=== PATIENT | female | born 1960 | race Asian ===

== ENCOUNTER 2018-10-21 13:02 | Emergency (ER) | payer OTHER ==
--- NOTE | 2018-10-21 13:23 | PDOC ---
History of Present Illness - General Chief Complaint: Back Pain Stated Complaint: CHRONIC BACK PAIN Time Seen by Provider: 10/21/18 13:21 - History of Present Illness Initial Comments: 10/21/18 13:40 58-year-old female complaining of right sided back pain radiating to the light right leg for the last 6 days after pushing a heavy object. Patient was seen by her primary care physician who ordered her Flexeril and Mobic. Patient reports dry mouth after taking Flexeril with no improvement in pain. Today patient had lumbar spine x-ray, patient came to the emergency room for evaluation. Past medical history: Asthma and chronic back pain Past History - Past Medical History Allergies/Adverse Reactions: Allergies Allergy/AdvReac Type Severity Reaction Status Date / Time azithromycin [From Zithromax] Allergy Rash Verified 10/21/18 13:23 Home Medications: Ambulatory Orders Albuterol Sulfate [Proair Hfa -] 1 - 2 inh PO TID 10/17/15 Mometasone/Formoterol [Dulera 100 Mcg/5 Mcg Inhaler] 2 inh IH BID 10/17/15 Amlodipine Besylate [Norvasc -] 5 mg PO DAILY 10/21/18 Atorvastatin Ca [Lipitor] 10 mg PO HS 10/21/18 Cyclobenzaprine HCl [Flexeril 10 mg] 10 mg PO BID PRN 10/21/18 Diazepam [Valium] 5 mg PO BID PRN #7 tablet MDD 2 10/21/18 Ibuprofen 600 mg PO QID PRN #20 tablet 10/21/18 Meloxicam [Mobic] 15 mg PO DAILY 10/21/18 predniSONE [Deltasone -] 5 mg PO DAILY 10/21/18 Asthma: Yes HTN: Yes (NO MEDS) - Reproductive History (#): 6 Para: 6 - Suicide/Smoking/Psychosocial Hx Smoking History: Never smoked Hx Alcohol Use: No Drug/Substance Use Hx: No Substance Use Type: None Review of Systems - Review of Systems Able to Perform ROS?: Yes Is the patient limited Telugu proficient: No Constitutional: No: Symptoms Reported, See HPI, Chills, Diaphoresis, Fever, Loss of Appetite, Malaise, Night Sweats, Weakness, Weight Stable, Unintentional Wgt. Loss, Unexplained wgt Loss, Other Progress Note - Progress Note Progress Note: A: sciatic nerve pain P: xray done prior to ED visit today reviewed.no acute findings pending read. will d/c flexeril and Mobic. Valium and ibuprofen patient has an Ortho appointment this week *DC/Admit/Observation/Transfer Diagnosis at time of Disposition: Sciatic nerve pain Qualifiers: Laterality: right Qualified Code(s): M54.31 - Sciatica, right side - Discharge Dispostion Disposition: HOME - Prescriptions Prescriptions: Diazepam [Valium] 5 mg PO BID PRN #7 tablet MDD 2 PRN Reason: Muscle Spasms Ibuprofen 600 mg PO QID PRN #20 tablet PRN Reason: Back Pain - Referrals - Patient Instructions Printed Discharge Instructions: DI for Back Pain With Sciatica Additional Instructions: take Ibuprofen every 6 hours as needed for pain take Valium as prescribed. it can make you sleepy do not drive after taking this medication follow up your doctor as soon as possible. Additional Instructions: * Please call your personal physician to report your Emergency Department visit and to report your progress, if any. * If there is no improvement in symptoms in 2 days call your physician. * Return to the Emergency Department for any worsening symptoms. - Post Discharge Activity Forms/Work/School Notes: Back to Work
[2018-10-21 13:24] VITALS: BP 150/90; PULSE 90; TEMP 97.8; BMI 24.9
[2018-10-21] MEDS ORDERED: diazePAM 5 MG TABLET PO ONE (13:37)
[2018-10-21] MEDS ORDERED: KETOROLAC TROMETHAMINE 30 MG/1 ML VIAL IM ONE (13:37)
[2018-10-21] MEDS ORDERED: KETOROLAC TROMETHAMINE 30 MG/1 ML VIAL ONE (13:44)
[2018-10-21] MEDS ORDERED: diazePAM 5 MG TABLET ONE (13:44)
== END 2018-10-21 14:05 | disposition home or self-care (01) ==
LOC: JERFT 13:02
PROC: 3E0233Z Introduction of Anti-inflammatory into Muscle, Percutaneous Approach (ICD-10-PCS; principal; 2018-10-21)
DX: M54.31 Sciatica, right side (principal); I10 Essential (primary) hypertension; J45.909 Unspecified asthma, uncomplicated
CPT/HCPCS: 99281-25

== ENCOUNTER 2019-06-09 22:04 | Inpatient (IN) | payer OTHER ==
[2019-06-09 22:17] VITALS: BMI 24.0
[2019-06-09] MEDS ORDERED: morphine CARPU-JECT 2 MG/1 ML DISP.SYRIN IVPUSH ONE (23:40)
[2019-06-09] MEDS ORDERED: SODIUM CHLORIDE 0.9% 500 ML INFUS.BAG IV ONE (23:40)
[2019-06-09] MEDS ORDERED: MORPHINE SULFATE 2 MG/ML VIAL ONE (23:55)
[2019-06-10] MEDS ORDERED: ONDANSETRON 4 MG/2 ML VIAL ONE (00:09)
--- NOTE | 2019-06-10 00:09 | PDOC ---
History of Present Illness - General Chief Complaint: Pain Stated Complaint: BACK PAIN/HBP Time Seen by Provider: 06/09/19 23:18 History Source: Patient, Family Exam Limitations: Language Barrier (moderate nauruan limitation; luxembourgish, family bedside ) - History of Present Illness Initial Comments: 06/10/19 06:22 HPI: 58F PMH HTN Asthma Sciatica presenting w/ 1 day acute worsening of back pain that pt has had for a month. States pain is constant, pressure like, with radiating to the substernum and epigastrum (burning). Endorsing vomiting since arrival to ED but no nausea. Denies f/c, numbness/tingling, sob. Pt states this is not her sciatica pain. PMH as above Meds per chart Allergies reviewed Past History - Past Medical History Allergies/Adverse Reactions: Allergies Allergy/AdvReac Type Severity Reaction Status Date / Time azithromycin [From Zithromax] Allergy Rash Verified 10/21/18 13:23 Home Medications: Ambulatory Orders Albuterol Sulfate [Proair Hfa -] 1 - 2 inh PO TID 10/17/15 Mometasone/Formoterol [Dulera 100 Mcg/5 Mcg Inhaler] 2 inh IH BID 10/17/15 Amlodipine Besylate [Norvasc -] 5 mg PO DAILY 10/21/18 Atorvastatin Ca [Lipitor] 10 mg PO HS 10/21/18 Cyclobenzaprine HCl [Flexeril 10 mg] 10 mg PO BID PRN 10/21/18 Diazepam [Valium] 5 mg PO BID PRN #7 tablet MDD 2 10/21/18 Ibuprofen 600 mg PO QID PRN #20 tablet 10/21/18 Meloxicam [Mobic] 15 mg PO DAILY 10/21/18 predniSONE [Deltasone -] 5 mg PO DAILY 10/21/18 Asthma: Yes COPD: No HTN: Yes (NO MEDS) - Reproductive History (#): 6 Para: 6 - Psycho Social/Smoking Cessation Hx Smoking History: Never smoked Hx Alcohol Use: No Drug/Substance Use Hx: No Substance Use Type: None Review of Systems - Review of Systems Able to Perform ROS?: Yes Comments:: 06/10/19 06:22 ROS: CONSTITUTIONAL: Denies F / C RESP: Denies SOB CARD: Endorses substerum chest pain (radiates from back) GI: Endorses epigastric pain (radiates from back) Endorses vomiting. MSK: Endorses back pain NEURO: Endorses generalized weakness. Denies numbness, tingling Is the patient limited Swedish proficient: Yes *Physical Exam - Vital Signs Last Vital Signs Temp Pulse Resp BP Pulse Ox 57 L 18 129/65 97 06/09/19 22:14 06/09/19 22:14 06/09/19 22:14 06/09/19 22:14 - Physical Exam Comments: 06/10/19 06:22 PE: GEN: AAOx3, visibly in pain HEENT: NC/AT. No facial asymmetry. Normal voice. Supple neck w/ FROM. CV: S1/S2, RRR, no m/r/g LUNG: CTAB, no wheezes, crackles, rales, rhonchi. GI: +TTP of the epigastrum and RUQ. +BS. Soft, nd. No masses BACK: Diffusely tender in thoracic region. No step offs. EXTREMITIES: No obvious deformities of all extremities. SKIN: warm, dry, normal turgor NEURO: Moving all extremities well. ED Treatment Course - LABORATORY CBC & Chemistry Diagram: 06/10/19 00:01 06/10/19 00:01 - RADIOLOGY Radiology Studies Ordered: Category Date Time Status CHEST CTA [CT] Stat CT Scan 06/09/19 23:42 Ordered CHEST X-RAY PORTABLE* [RAD] Stat Radiology 06/09/19 23:41 Ordered - Medications Given in the ED: ED Medications Discontinued Medications Generic Name Dose Route Start Last Admin Trade Name Freq PRN Reason Stop Dose Admin Morphine Sulfate 2 mg 06/09/19 23:40 06/10/19 00:03 Morphine Injection - IVPUSH 06/09/19 23:41 2 mg ONCE ONE Administration Sodium Chloride 1,000 ml 06/09/19 23:40 06/10/19 00:04 Normal Saline - IV 06/09/19 23:41 1,000 ml ONCE ONE Administration Medical Decision Making - Medical Decision Making 06/10/19 00:12 MDM: 58F c/o acute back pain, epigastric and substernal pain. TTP of the RUQ and mid- epigastrium. DDx - likely gallbladder pathology, considering ACS - CBC, CMP, Lipase, Cardiac, BNP - EKG, CXR - Pain ctrl - Fluids - RUQ US - consider CTA 06/10/19 01:40 labs reviewed likely biliary/RUQ pathology f/u US results 06/10/19 05:24 UA neg. US showing borderline CBD obtained CT A/P; f/u report patient was reassessed at 03:00, was pain free and nontender on exam obtained further hx - patient has had 4 episodes of similar pain but usually self resolving and not as severe 06/10/19 05:34 UTOX ordered by mistake; +opiates, we treated pt w/ morphine before urine sample given. Son (Isaak) can be reached at [phone] 06/10/19 06:[address] Young Abbasi television production assistant doctor - ADMITTED to med/surg under Dr. Abbasi GI and Surgery c/s placed Discharge - Discharge Information Problems reviewed: Yes Clinical Impression/Diagnosis: Symptomatic cholelithiasis - Admission Yes - Follow up/Referral Referrals: Edinson Das MD [Primary Care Provider] - Young Abbasi MD [Staff Physician] - - Patient Discharge Instructions - Post Discharge Activity
[2019-06-10] MEDS ORDERED: FAMOTIDINE 20 MG/50 ML IVPB 20 MG/50 ML MG IVPB ONE ×2 (00:15→01:17)
[2019-06-10] MEDS ORDERED: ONDANSETRON 4 MG/2 ML VIAL IVPUSH ONE (00:15)
[2019-06-10] MEDS ORDERED: ACETAMINOPHEN 1000 MG/100 ML VIAL (NON FORMULARY) IVPB ONE (00:17)
[2019-06-10] MEDS ORDERED: ACETAMINOPHEN INJECTION 100 ML IVPB ONE (00:19)
[2019-06-10 00:33] LABS: BASO % 0.4 % (0-2.0); EOS % 3.3 % (0-4.5); HEMATOCRIT 38.4 % (32.4-45.2); HEMOGLOBIN 12.7 GM/dL (10.7-15.3); LYMPH % 14.5 % (8-40); MCH 30.3 pg (25.7-33.7); MCHC 33.2 g/dl (32.0-36.0); MEAN CELL VOLUME 91.4 fl (80-96); MEAN PLT VOLUME 7.6 fl (7.5-11.1); NEUT % 75.8 % (42.8-82.8); PLATELET COUNT 268 K/MM3 (134-434); RDW 13.5 % (11.6-15.6); WHITE BLOOD COUNT 10.8 K/mm3 (4.0-10.0)
[2019-06-10 00:46] LABS: INR 1.05 (0.83-1.09); PROTHROMBIN TIME (PATIENT) 12.4 SEC (9.7-13.0)
--- NOTE | 2019-06-10 01:06 | PDOC ---
Documentation entered by Bharti Zaman SCRIBE, acting as scribe for Danae Montejo DO. Danae Montejo DO: This documentation has been prepared by the Austyn mojica Brenda, SCRIBE, under my direction and personally reviewed by me in its entirety. I confirm that the documentation accurately reflects all work, treatment, procedures, and medical decision making performed by me. Attending Attestation - Resident Resident Name: David Ruff - ED Attending Attestation I have performed the following: I have examined & evaluated the patient, The case was reviewed & discussed with the resident, I agree w/resident's findings & plan, Exceptions are as noted - HPI HPI: 06/10/19 00:35 The patient is a 58 year old female, with a significant PMH of sciatic pain, asthma and HTN who presents to the emergency department with 1 month of progressively worsening epigastric pain, which radiates from her back. As per patients son on the bedside, the patient has been experiencing this epigastric/ back pain for 1 month about 2-3 times a week, but was prompted to come to the ED this morning due to worsening symptoms, which are accompanied by nausea and vomiting. The patient also endorses a burning sensation in the chest. The patient denies shortness of breath, headache and dizziness. Denies fever, chills, nausea, vomiting, diarrhea and constipation. Denies dysuria, frequency, urgency and hematuria. Allergies: NKA Past surgical history: None reported Social history: No tobacco use, alcohol use or illicit drug use. PCP: [facility] Neurologist: Lurdes - Physicial Exam PE: 06/10/19 00:35 GENERAL: Awake, alert, and fully oriented, in no acute distress HEAD: No signs of trauma EYES: PERRLA, EOMI, sclera anicteric, conjunctiva clear ENT: Auricles normal inspection, hearing grossly normal, nares patent, oropharynx clear without exudates. Moist mucosa NECK: Normal ROM, supple, no lymphadenopathy, JVD, or masses LUNGS: Breath sounds equal, clear to auscultation bilaterally. No wheezes, and no crackles HEART: Regular rate and rhythm, normal S1 and S2, no murmurs, rubs or gallops ABDOMEN:(+) Epigastric tenderness to palpation. (+) Right upper quadrant tenderness to palpation. (+) Less severe lower abdominal tenderness. (+) Positive robinson's. Soft, normoactive bowel sounds. No guarding, no rebound. No masses BACK: (+) Diffuse tenderness in back. (+) Bilateral CVA tenderness. No midline or CT L spine tenderness. EXTREMITIES: Normal range of motion, no edema. No clubbing or cyanosis. No cords, erythema, or tenderness NEUROLOGICAL: Cranial nerves II through XII grossly intact. Normal speech, normal gait SKIN: Warm, Dry, normal turgor, no rashes or lesions noted. - Medical Decision Making 06/10/19 00:21 I, Dr. Danae Montejo, DO, attest that this document has been prepared under my direction and personally reviewed by me in its entirety. I further attest, that it accurately reflects all work, treatment, procedures and medical decision -making performed by me. a/p: 58yo female with hx of sciatica who follows with Dr. Chatman and asthma with abd pain -hx of episodes x 20 days - but worse tonight with n/v -nbnb vomiting -burning sensation in abd and chest -back pain that radiates to the front -concern for gallstone pancreatitis vs pud vs gastritis -will send labs, ekg, cxr -will send for ct after bedside ultrasound -will medicate and reassess 06/10/19 01:05 bedside ultrasound shows gallstones, +murphys, +gbw thickening and dilated cbd sent for formal imaging will hodl off on ct imaging at this time pain to RUQ - suspect acute shona 06/10/19 01:06 pt states she feels better and wants to eat 06/10/19 01:21 elevated lft no elevated lipase 06/10/19 01:28 pt with stones on ultrasound also with poss early early pna on cxr will start abx 06/10/19 01:51 pt pending official ultrasound read signed out to the oncoming ED physician Heart Score/ECG Review - ECG Intrepretation Comment:: 06/10/19 00:19 sinus at 61, nl axis, nl interval, no acute st/t wave findings
[2019-06-10 01:17] LABS: ALBUMIN 3.7 g/dl (3.4-5.0); ALK PHOS 104 U/L (45-117); ANION GAP 11 MMOL/L (8-16); BILIRUBIN,TOTAL 0.9 mg/dL (0.2-1); BLOOD UREA NITROGEN 12.9 mg/dL (7-18); CALCIUM 9.1 mg/dL (8.5-10.1); CHLORIDE 103 mmol/L (98-107); CO2 26 mmol/L (21-32); CREATININE 0.7 mg/dL (0.55-1.3); GLUCOSE,RANDOM 158 mg/dL (74-106); LIPASE 204 U/L (73-393); N-TERMINAL BNP 27.8 pg/ml (5-125); POTASSIUM 3.9 mmol/L (3.5-5.1); SGOT/AST 89 U/L (15-37); SGPT/ALT 183 U/L (13-61); SODIUM 140 mmol/L (136-145); TOT PROT 7.6 g/dl (6.4-8.2)
[2019-06-10 05:10] LABS: PH,URINE 7.5 (5.0-8.0); URINE APPEARANCE CLEAR; URINE BILIRUBIN NEGATIVE (NEGATIVE); URINE COLOR YELLOW; URINE GLUCOSE (UA) NEGATIVE (NEGATIVE); URINE KETONE NEGATIVE (NEGATIVE); URINE LEUK ESTERASE NEGATIVE (NEGATIVE); URINE NITRITE NEGATIVE (NEGATIVE); URINE PROTEIN NEGATIVE (NEGATIVE); URINE UROBILINOGEN 0.2 mg/dL (0.2-1.0)
[2019-06-10 05:29] LABS: COCAINE, UR NEGATIVE ng/ml (CUTOFF=300); METHADONE, UR NEGATIVE ng/ml (CUTOFF=300); PHENCYCLIDINE,URINE NEGATIVE ng/ml (CUTOFF=25); URINE AMPHETAMINES NEGATIVE ng/ml (CUTOFF=500); URINE BARBITURATES NEGATIVE ng/ml (CUTOFF=200); URINE BENZODIAZEPINES NEGATIVE ng/ml (CUTOFF=200)
[2019-06-10 05:31] LABS: OPIATES, URI POSITIVE ng/ml (CUTOFF=300)
--- NOTE | 2019-06-10 12:46 | EKG ---
Test Reason : Blood Pressure : / mmHG Vent. Rate : 061 BPM Atrial Rate : 061 BPM P-R Int : 154 ms QRS Dur : 082 ms QT Int : 440 ms P-R-T Axes : 068 058 059 degrees QTc Int : 442 ms NORMAL SINUS RHYTHM NONSPECIFIC T WAVE ABNORMALITY ABNORMAL ECG WHEN COMPARED WITH ECG OF 17-OCT-2015 13:48, VENT. RATE HAS DECREASED BY 37 BPM Confirmed by CHUNG PATEL MD ([id number]) on 06/10/2019 12:45:49 PM Referred By: Confirmed By:CHUNG PATEL MD
--- NOTE | 2019-06-10 13:25 | CONSULT ---
Consult Consult Specialty:: Surgery Referred by:: Dr. Abbasi Reason for Consultation:: Abdominal pain , cholelithiasis, cholecystitis. - History of Present Illness Chief Complaint: C/O having upper abdominal pain since this morning, associated with nausea. - History Source History Provided By: Patient Limitations to Obtaining History: No Limitations - Past Medical History Cardio/Vascular: Yes: HTN Pulmonary: Yes: Asthma - Past Surgical History Past Surgical History: Yes: - Alcohol/Substance Use Hx Alcohol Use: No - Smoking History Smoking history: Never smoked Home Medications - Allergies Allergies/Adverse Reactions: Allergies Allergy/AdvReac Type Severity Reaction Status Date / Time azithromycin [From Zithromax] Allergy Rash Verified 10/21/18 13:23 - Home Medications Home Medications: Ambulatory Orders Albuterol Sulfate [Proair Hfa -] 1 - 2 inh PO TID 10/17/15 Mometasone/Formoterol [Dulera 100 Mcg/5 Mcg Inhaler] 2 inh IH BID 10/17/15 Amlodipine Besylate [Norvasc -] 5 mg PO DAILY 10/21/18 Atorvastatin Ca [Lipitor] 10 mg PO HS 10/21/18 Cyclobenzaprine HCl [Flexeril 10 mg] 10 mg PO BID PRN 10/21/18 Diazepam [Valium] 5 mg PO BID PRN #7 tablet MDD 2 10/21/18 Ibuprofen 600 mg PO QID PRN #20 tablet 10/21/18 Meloxicam [Mobic] 15 mg PO DAILY 10/21/18 predniSONE [Deltasone -] 5 mg PO DAILY 10/21/18 Physical Exam Vital Signs: Vital Signs Temperature 98.2 F 06/10/19 06:50 Pulse Rate 60 06/10/19 06:50 Respiratory Rate 16 06/10/19 06:50 Blood Pressure 119/69 06/10/19 06:50 O2 Sat by Pulse Oximetry (%) 97 06/10/19 06:50 Gastrointestinal: Yes: Abdomen, Obese Labs: CBC, BMP 06/10/19 00:01 06/10/19 00:01 Imaging - Results Cat Scan: Image Reviewed (CT scan large gallbladder with thickened wall. Cholelithiasis) Ultrasound: Report Reviewed, Image Reviewed Problem List - Problems (1) Symptomatic cholelithiasis Code(s): K80.20 - CALCULUS OF GALLBLADDER W/O CHOLECYSTITIS W/O OBSTRUCTION (2) Abdominal pain Code(s): R10.9 - UNSPECIFIED ABDOMINAL PAIN Qualifiers: Abdominal location: epigastric Qualified Code(s): R10.13 - Epigastric pain (3) Asthma Code(s): J45.909 - UNSPECIFIED ASTHMA, UNCOMPLICATED (4) HTN (hypertension) Code(s): I10 - ESSENTIAL (PRIMARY) HYPERTENSION Assessment/Plan Impression : Calculus of gallbladder with acute on chronic cholecystitis. Patient and her were explained of her condition , and treatment with cholecystectomy. The procedure of laparoscopic and open cholecystectomy was explained , with risks , benefits and complications, including , bleeding , infection , bile leak, and ductal injury. Consent obtained. Discussed with Dr. Abbasi. Antibiotics.
[2019-06-10] MEDS ORDERED: BUPIVACAINE HCL/PF 0.5% (5 MG/ML) 30 ML VIAL IJ ONE ×3 (13:35→15:36)
[2019-06-10] MEDS ORDERED: ROCURONIUM BROMIDE 50 MG/5 ML SYRINGE ONE (13:36)
[2019-06-10] MEDS ORDERED: MIDAZOLAM HCL 2 MG/2 ML SINGLE DOSE VIAL ONE (13:36)
[2019-06-10] MEDS ORDERED: PROPOFOL 20 ML ONE (13:36)
[2019-06-10] MEDS ORDERED: fentaNYL CITRATE 250 MCG/5 ML VIAL ONE (13:36)
[2019-06-10] MEDS ORDERED: LIDOCAINE HCL/PF 2% SDV 5ML VIAL ONE (13:36)
[2019-06-10] MEDS ORDERED: DEXAMETHASONE SOD PHOSPHATE 4 MG/1 ML VIAL ONE (13:38)
[2019-06-10] MEDS ORDERED: MORPHINE SULFATE 2 MG/ML VIAL IVPUSH PRN ×2 (13:59→16:03)
[2019-06-10] MEDS ORDERED: LACTATED RINGERS SOLUTION 1,000 ML IV SCH (14:00)
--- NOTE | 2019-06-10 14:09 | PN ---
Progress Note, Physician - Current Medication List Current Medications: Active Medications Fentanyl (Sublimaze Injection -) 25 mcg IVPUSH [id number] PRN PRN Reason: PAIN-PACU ORDER X 4 DOSES ONLY Lactated Ringer's (Lactated Ringers Solution) 1,000 mls @ 125 mls/hr IV ASDIR SHADI Morphine Sulfate (Morphine Sulfate) 2 mg IVPUSH [id number] PRN PRN Reason: PAIN-PACU ORDER X 4 DOSES ONLY - Objective Vital Signs: Vital Signs Temperature 98.6 F 06/10/19 14:01 Pulse Rate 73 06/10/19 14:01 Respiratory Rate 18 06/10/19 14:01 Blood Pressure 144/93 06/10/19 14:01 O2 Sat by Pulse Oximetry (%) 97 06/10/19 06:50 Labs: CBC, BMP 06/10/19 00:01 06/10/19 00:01 INR, PTT INR 1.05 (0.83-1.09) 06/10/19 00:01 Problem List - Problems (1) Symptomatic cholelithiasis Code(s): K80.20 - CALCULUS OF GALLBLADDER W/O CHOLECYSTITIS W/O OBSTRUCTION (2) Abdominal pain Code(s): R10.9 - UNSPECIFIED ABDOMINAL PAIN Qualifiers: Abdominal location: epigastric Qualified Code(s): R10.13 - Epigastric pain (3) Asthma Code(s): J45.909 - UNSPECIFIED ASTHMA, UNCOMPLICATED (4) HTN (hypertension) Code(s): I10 - ESSENTIAL (PRIMARY) HYPERTENSION Assessment/Plan CT scan was reviewed with radiologist, shows a thickened gallbladder. rest of the abdomen is normal.
--- NOTE | 2019-06-10 14:21 | CON.GI ---
Consult Consult Specialty:: Gastroenterology Referred by:: Dr Abbasi Reason for Consultation:: Consult was not done as the patient was taken to the OR before I could do it Home Medications - Allergies Allergies/Adverse Reactions: Allergies Allergy/AdvReac Type Severity Reaction Status Date / Time azithromycin [From Zithromax] Allergy Rash Verified 10/21/18 13:23 - Home Medications Home Medications: Ambulatory Orders Albuterol Sulfate [Proair Hfa -] 1 - 2 inh PO TID 10/17/15 Mometasone/Formoterol [Dulera 100 Mcg/5 Mcg Inhaler] 2 inh IH BID 10/17/15 Amlodipine Besylate [Norvasc -] 5 mg PO DAILY 10/21/18 Atorvastatin Ca [Lipitor] 10 mg PO HS 10/21/18 Cyclobenzaprine HCl [Flexeril 10 mg] 10 mg PO BID PRN 10/21/18 Diazepam [Valium] 5 mg PO BID PRN #7 tablet MDD 2 10/21/18 Ibuprofen 600 mg PO QID PRN #20 tablet 10/21/18 predniSONE [Deltasone -] 5 mg PO DAILY 10/21/18 Gabapentin 100 mg PO TID 06/11/19 Physical Exam-GI Vital Signs: Vital Signs Temperature 98.6 F 06/10/19 14:01 Pulse Rate 73 06/10/19 14:01 Respiratory Rate 18 06/10/19 14:01 Blood Pressure 144/93 06/10/19 14:01 O2 Sat by Pulse Oximetry (%) 97 06/10/19 06:50 Labs: CBC, BMP 06/10/19 00:01 06/10/19 00:01 INR, PTT INR 1.05 (0.83-1.09) 06/10/19 00:01
[2019-06-10] MEDS ORDERED: ceFAZolin SODIUM 1 GM VIAL IVPB ONE (14:38)
[2019-06-10] MEDS ORDERED: ceFAZolin SODIUM 1 GM VIAL ONE (14:41)
[2019-06-10] MEDS ORDERED: EPHEDRINE SULFATE/0.9% NACL/PF 50 MG/10 ML SYRINGE NR ONE (14:53)
[2019-06-10] MEDS ORDERED: NEOSTIGMINE METHYLSULFATE 0.5 MG/ML - 10 ML MDV ONE (15:29)
[2019-06-10] MEDS ORDERED: GLYCOPYRROLATE 0.2 MG/1 ML VIAL ONE (15:29)
--- NOTE | 2019-06-10 15:36 | PN ---
Progress Note (short form) - Note Progress Note: GI NOte : The patient went to the operating room before I could see her.
--- NOTE | 2019-06-10 15:53 | OP ---
Operative Note - Note: Operative Date: 06/10/19 Pre-Operative Diagnosis: Cholelithiasis, with cholecystitis. Operation: Laparoscopic cholecystectomy, wedge biopsy of liver from the edge of the right lobe. Findings: Cholecystitis , diffusely nodular liver. Post-Operative Diagnosis: Other (Cholecystitis , diffusely nodular liver.) Surgeon: Amadou Hunter Fastener Technologist: Cain Donaldson Anesthesia: General Specimens Removed: 1) Gallbladder,. 2) liver biopsy , wedge. Estimated Blood Loss (mls): 5 Operative Report Dictated: Yes
--- NOTE | 2019-06-10 15:57 | SURG ---
Surgery Implementation Specialist Payroll Note Implementation Specialist Payroll: Cain Donaldson PA-C (Suzy) Date of Service: 06/10/19 Diagnosis: Cholelithiasis, with cholecystitis. Procedure: Operation: Laparoscopic cholecystectomy, wedge biopsy of liver from the edge of the right lobe. I was present for the entirety of the operative procedure. For further detail, please refer to operative report. Visit type - Case Type Case Type: Scheduled - Emergency Emergency Visit: No - New patient This patient is new to me today: Yes Date on this admission: 06/10/19 - Critical Care Critical Care patient: No
[2019-06-10] MEDS ORDERED: ONDANSETRON 4 MG/2 ML VIAL IVPUSH PRN (16:12)
[2019-06-10] MEDS: LACTATED RINGERS SOLUTION 1,000 ML IV SCH (16:50)
[2019-06-10] MEDS ORDERED: hydrALAZINE HCL 20 MG/ML VIAL IVPUSH PRN (17:06)
[2019-06-10] MEDS ORDERED: hydrALAZINE HCL 20 MG/ML VIAL ONE (17:06)
[2019-06-10] MEDS: ACETAMINOPHEN WITH CODEINE 300MG/30MG TABLET PO PRN (17:52)
--- NOTE | 2019-06-10 20:28 | HP ---
DATE OF ADMISSION: 06/10/2019 This is a 58-year-old female known to have COPD, hypertension, hyperlipidemia; came to my office 2 days ago with complaints of abdominal pain. She was sent to the hospital for an ultrasound. She landed up in the ER yesterday, found out to have acute cholecystitis. Surgical consult was done this morning by Dr. Hunter. He took her to the operating room, and cholecystectomy was done. She had multiple gallstones. After the operation, she tolerated the procedure very well. Now sleepy. PHYSICAL EXAMINATION: Vital Signs: Her blood pressure is 130/80, pulse 72, respirations 20, temperature 98. HEENT: Unremarkable. Neck: Supple. No JVD. Lungs: Clear. Heart: S1, S2 normal. No S3, S4. Abdomen: Mildly distended. Legs: No edema. Urine output okay. LABORATORY REPORTS: WBC 10.8, hemoglobin 12.7. Chemistry: Sodium 140, potassium 3.9, chloride 103, BUN 13, creatinine 0.7, blood sugar 158. AST/ALT slightly elevated, 89 and 183. Lipase 204. BNP normal, 27.8. IMPRESSION: 1. Acute cholecystitis, status post cholecystectomy. 2. Bronchial asthma. 3. Hyperlipidemia. Will evaluate again in the morning. If stable, can be discharged home. Jarrett [id number]
[2019-06-10] MEDS ORDERED: HYDROmorphone HCL 2 MG TABLET PO ONE (21:15)
[2019-06-11] MEDS: LACTATED RINGERS SOLUTION 1,000 ML IV SCH (01:12)
[2019-06-11] MEDS: ACETAMINOPHEN WITH CODEINE 300MG/30MG TABLET PO PRN ×2 (01:12→11:48)
--- NOTE | 2019-06-11 08:28 | PN ---
Progress Note (short form) - Note Progress Note: Anesthesia Post op Pt seen and examined S:Alert and awake comfortable O: Vital Signs Temperature 98.3 F 06/11/19 06:41 Pulse Rate 81 06/11/19 06:41 Respiratory Rate 18 06/11/19 06:41 Blood Pressure 140/70 06/11/19 06:41 O2 Sat by Pulse Oximetry (%) 99 06/10/19 21:00 CBC, BMP 06/10/19 00:01 06/10/19 00:01 A/P: Current Active Problems Abdominal pain (Acute) Symptomatic cholelithiasis (Acute) s/p Lap Cholecystectomy Doing well post op Continue current care Callum Heath M.D.
[2019-06-11 13:26] VITALS: BP 148/81; PULSE 89; TEMP 98.2
--- NOTE | 2019-06-11 13:50 | DS ---
Physical Examination Vital Signs: Vital Signs Temperature 98.2 F 06/11/19 13:24 Pulse Rate 89 06/11/19 13:24 Respiratory Rate 20 06/11/19 13:24 Blood Pressure 148/81 06/11/19 13:24 O2 Sat by Pulse Oximetry (%) 99 06/11/19 09:00 Young F not in distress HEENT: mm moist anemia, PERRLA EOMI NECK; No JVd No Bruit CHEST:CTa B/L ABD: S/P Cholycystectomy, No distention non tender Bs + EXT: edema feet + , no calf tenderness LEAD JAVASCRIPT ENGINEER: AOX3 non focal Labs: CBC, BMP 06/10/19 00:01 06/10/19 00:01 Discharge Summary Problems reviewed: Yes Reason For Visit: SYMPTOMATIC CHOLELITHIASIS Current Active Problems Abdominal pain (Acute) Symptomatic cholelithiasis (Acute) Procedures: Principal: laproscopic cholycystectomy Hospital Course: 58 yrs old F admitted with Rt UQ pain w/u shows acute cholycystitis with gall stone underwent , Laproscopic cholycystectomy on 06/10/2019 today comfortable tolerating PO claered by surgery to In home. Plan of Treatment: Advance Po as tolerates F/U PCP and Operating surgeon Condition: Improved - Instructions Diet, Activity, Other Instructions: Advance PO as tolerates Referrals: Young Abbasi MD [Staff Physician] - 1 Week Amadou Hunter MD [Staff Physician] - 1 Week Disposition: HOME - Home Medications Comprehensive Discharge Medication List: Ambulatory Orders Albuterol Sulfate [Proair Hfa -] 1 - 2 inh PO TID 10/17/15 Mometasone/Formoterol [Dulera 100 Mcg/5 Mcg Inhaler] 2 inh IH BID 10/17/15 Amlodipine Besylate [Norvasc -] 5 mg PO DAILY 10/21/18 Atorvastatin Ca [Lipitor] 10 mg PO HS 10/21/18 Cyclobenzaprine HCl [Flexeril 10 mg] 10 mg PO BID PRN 10/21/18 Diazepam [Valium] 5 mg PO BID PRN #7 tablet MDD 2 10/21/18 Ibuprofen 600 mg PO QID PRN #20 tablet 10/21/18 Meloxicam [Mobic] 15 mg PO DAILY 10/21/18 predniSONE [Deltasone -] 5 mg PO DAILY 10/21/18 Gabapentin 100 mg PO TID 06/11/19
--- NOTE | 2019-06-11 14:49 | PN ---
Progress Note (short form) - Note Progress Note: GI NOte : The patient was discharged before I could see her.
--- NOTE | 2019-06-13 15:52 | OP ---
DATE OF OPERATION: 06/10/2019 PREOPERATIVE DIAGNOSES: Upper abdominal pain, calculus of the gallbladder with cholecystitis, chronic asthma, hypertension. POSTOPERATIVE DIAGNOSES: Cholelithiasis, cholecystitis and adhesions, diffusely nodular liver. SURGEON: Marianne Hunter MD HAND NAILER: MANUEL Watson ANESTHESIA: General anesthesia. OPERATIVE PROCEDURE: Laparoscopic cholecystectomy, lysis of omental and gastric adhesions, and wedge biopsy of the liver. OPERATIVE DESCRIPTION: This 58-year-old woman came to the emergency room complaining of severe epigastric pain since morning associated with vomiting. Patient denies any previous similar symptoms. She is known to have chronic asthma as well as hypertension, hyperlipidemia and has been on medication. An ultrasound revealed thickened gallbladder wall with a large stone within the gallbladder. The common bile duct was marginally dilated to 6 mm. Her WBC is 10,800. Her AST and ALT are elevated, and total bilirubin is normal. The diagnosis of cholelithiasis and cholecystitis. Consent was obtained for laparoscopic cholecystectomy, possible open. Risks, benefits, and complications were discussed with the patient. Patient was given antibiotics prior to the procedure. General anesthesia was administered. The abdomen was painted and draped. Time-out was called. An incision was made in the infraumbilical portion of the umbilicus, which was deepened inside the skin, subcutaneous tissue, and the linea alba. Two stay sutures of 2-0 Vicryl were obtained on either side of the incision to anchor the 10-mm Migue to the abdominal wall. A 10-mm Migue trocar was inserted into the abdominal wall and anchored to the abdominal wall. Through this, carbon dioxide was inflated in the abdominal cavity to a maximum pressure limit of 15 mmHg with 6 L/min of CO2. A 10-mm 0-degree camera was introduced into the abdominal cavity. There were no adhesions within the abdominal wall. Two 5-mm trocars were inserted in the right upper quadrant of the abdomen, 1 along the midclavicular line, another along the anterior axillary line 2-3 fingerbreadths below the costal margin. A 3rd 5-mm trocar was inserted in the midline in the subxiphoid area entering the abdominal cavity to the right of the falciform ligament. All 3 trocars were introduced into the abdominal cavity under direct vision with the camera. The liver was enlarged and found to be diffusely nodular suggestive of liver cirrhosis. After lifting the gallbladder with a grasper through the lateral 5-mm port, the gallbladder was visualized. This was grasped at the fundus and retracted cephalad and laterally exposing the rest of the gallbladder, the adhesions of the omentum to the inferior surface of the gallbladder and the inferior surface of the liver retracting the stomach also towards the body of the liver on the inferior surface. Another grasper was introduced through the medial 5-mm port. With the EndoShear through the subxiphoid port, the adhesions of the omentum to the liver were lysed visualizing the rest of the gallbladder all the way to the infundibulum and below. The infundibulum of the gallbladder was grasped with another grasper through the medial 5-mm port. This was retracted inferiorly and laterally thus exposing the Calot triangle. With the Endo Scissor, the peritoneal reflection around the cystic duct and infundibulum was carefully lysed exposing the cystic duct/gallbladder junction. It was noted that the cystic artery was going over the cystic duct. This was carefully dissected and divided between clips. After dividing the cystic artery, the cystic duct was completely visualized and isolated circumferentially. This was then divided between clips. Gallbladder was then mobilized dividing the peritoneal reflection on either side of the gallbladder and dissecting the gallbladder off its bed towards the fundus of the gallbladder. The dissection proceeded very well, and cholecystectomy was, thus, accomplished. It was then decided to do a wedge biopsy of the liver. This was done at the edge of the right lobe of the liver using again electrocautery and the Endo Scissors, and this wedge biopsy was obtained. EndoCatch was then introduced through the umbilical port the camera being switched to the subxiphoid port using a 5-mm 30-degree angle scope. The gallbladder and the wedge biopsy of the liver were placed in the EndoCatch and retrieved out of the abdominal cavity individually. The liver bed after the biopsy was cauterized satisfactorily and a piece of Surgicel was introduced through the umbilical port and placed between the wedge. Hemostasis was satisfactory. The rest of the abdomen was normal. Sponge count and instrument count were correct. The instruments were removed, and the abdomen was deflated. The linea alba in the midline was approximated with interrupted and [id number] 2-0 Vicryl sutures, 0.5% Marcaine was injected into the wound. Skin was approximated with buried interrupted 4-0 Biosyn sutures. Dermabond was applied across the skin edges. Estimated blood loss was less than 5 mL. Patient tolerated the procedure well, was extubated and sent to the recovery room in satisfactory and stable condition. Jarrett MUNOZ/[id number] cc: Young Abbasi MD
--- NOTE | 2019-06-15 16:35 | PATH ---
Surgical Pathology Report Patient Name: BRITTANI AMBRIZ Med. Rec. #: [id number] /Age/Gender: 1960 (Age: 58) / F Account: [id number] Location: [facility] MED/SURG Taken: 06/10/2019 Received: 06/13/2019 Reported: 06/15/2019 Physicians: Marianne Hunter M.D. Specimen(s) Received A: LIVER BIOPSY B: GALLBLADDER Clinical History Cholelithiasis Final Diagnosis A. LIVER, BIOPSY: SUBCAPSULAR LIVER TISSUE SHOWING PERIVENULAR, PERICELLULAR, AND PERIPORTAL FIBROSIS WITH FOCAL FIBROUS SEPTA (STAGE 2~3/4, TRICHROME STAIN). PORTAL TRACTS SHOW A MIXED INFLAMMATORY INFILTRATE COMPRISED OF MAINLY LYMPHOCYTES WITH FEW SCATTERED EOSINOPHILS. IRON STAIN IS NEGATIVE FOR SIDEROSIS. NEGATIVE FOR GRANULOMAS OR MALIGNANCY. Comment: The liver fibrosis cannot be fully evaluated due to the suboptimal material (subcapsular liver tissue). Correlation with other clinical data is necessary. B. GALLBLADDER, CHOLECYSTECTOMY: MILD ACUTE SUPERIMPOSED ON CHRONIC CHOLECYSTITIS, CHOLESTEROLOSIS, AND CHOLELITHIASIS. Electronically Signed Reymundo Ramsey M.D. Gross Description A. Received in formalin labeled "liver biopsy," is a 1.0 x 0.7 x 0.5 cm muhammad, irregular portion of soft tissue, consistent with a liver biopsy. The specimen is bisected and entirely submitted in one cassette. B. Received in formalin, labeled "gallbladder," is a 6.7 x 2.7 x 2.2 cm. gallbladder with a 0.2 cm. in length portion of cystic duct attached. The outer surface is muhammad green and varies from smooth to shaggy. The lumen contains green, tenacious bile as well as 3 yellow, bosselated choleliths ranging from 0.6-1.3 cm in greatest dimension. The mucosa is green and velvety with gold cholesterol stippling. The wall of the gallbladder averages 0.2 cm. in thickness. Business Operations Manager sections are submitted in one cassette. /06/13/2019 saudi/06/13/2019
== END 2019-06-11 15:06 | disposition home or self-care (01) | DRG 263 ==
LOC: JER 22:04 → JERBED 06-10 06:11 → J7W 06-10 13:10
PROVIDERS: ADMIT Internal Medicine; ATTEND Internal Medicine
PROC: 0DNW4ZZ Release Peritoneum, Percutaneous Endoscopic Approach (ICD-10-PCS; 2019-06-10)
PROC: 0FB14ZX Excision of Right Lobe Liver, Percutaneous Endoscopic Approach, Diagnostic (ICD-10-PCS; 2019-06-10)
PROC: 0FT44ZZ Resection of Gallbladder, Percutaneous Endoscopic Approach (ICD-10-PCS; principal; 2019-06-10 13:45)
DX: K80.12 Calculus of gallbladder with acute and chronic cholecystitis without obstruction (principal); R10.11 Right upper quadrant pain; J45.909 Unspecified asthma, uncomplicated; I10 Essential (primary) hypertension; E78.5 Hyperlipidemia, unspecified; K66.0 Peritoneal adhesions (postprocedural) (postinfection)
CPT/HCPCS: 36415; 71045-TC-FY; 74177-TC; 76705-TC; 80053; 80307; 81003; 82550; 83690; 83880; 84484; 85025; 85610; 85730; 86850; 86900; 86901; 87086; 88304-TC; 88305-TC; 93005; 93010; 94760; 99285-25; J0131

== ENCOUNTER 2019-10-27 09:31 | Emergency (ER) | payer OTHER ==
[2019-10-27 09:42] VITALS: BP 126/83; PULSE 96; TEMP 98; BMI 24.0
[2019-10-27] MEDS ORDERED: predniSONE 20 MG TABLET (UD) PO ONE (10:14)
[2019-10-27] MEDS ORDERED: ALBUTEROL SO4 2.5/IPRATROPIUM 0.5 INH SOL 3 ML VIAL.NEB. NEB ONE ×2 (10:14→10:17)
[2019-10-27] MEDS ORDERED: predniSONE 20 MG TABLET (UD) ONE (10:17)
--- NOTE | 2019-10-27 10:20 | PDOC ---
History of Present Illness - General Chief Complaint: Wheezing Stated Complaint: SENT BY DOC Time Seen by Provider: 10/27/19 09:48 - History of Present Illness Initial Comments: Marie Torres is a 59 y/o female with reported PMH significant for bronchopulmonary aspergillosis, asthma, bronchiectasis, presenting today with productive cough, wheezing, and dyspnea on exertion. Reports that her cough started 1 week ago. She saw her ENT Dr. Das and was started on a course of Bactrim (10 days) and increased her prednisone from 5 mg to 10 mg. Denies fever/chills. Denies abdominal pain/diarrhea/dysuria. Denies nausea/vomiting. She has episodes of wheezing and productive cough often (usually with the season changes), and has an inhaler, which is moderately effective. Recently arrived from [place] on . PCP: Dr. Abbasi Past History - Past Medical History Allergies/Adverse Reactions: Allergies Allergy/AdvReac Type Severity Reaction Status Date / Time azithromycin [From Zithromax] Allergy Rash Verified 10/21/18 13:23 Home Medications: Ambulatory Orders Albuterol Sulfate [Proair Hfa -] 1 - 2 inh PO TID 10/17/15 Mometasone/Formoterol [Dulera 100 Mcg/5 Mcg Inhaler] 2 inh IH BID 10/17/15 Amlodipine Besylate [Norvasc -] 5 mg PO DAILY 10/21/18 Atorvastatin Ca [Lipitor] 10 mg PO HS 10/21/18 Cyclobenzaprine HCl [Flexeril 10 mg] 10 mg PO BID PRN 10/21/18 Diazepam [Valium] 5 mg PO BID PRN #7 tablet MDD 2 10/21/18 Ibuprofen 600 mg PO QID PRN #20 tablet 10/21/18 predniSONE [Deltasone -] 5 mg PO DAILY 10/21/18 Gabapentin 100 mg PO TID 06/11/19 Asthma: Yes COPD: No HTN: Yes (NO MEDS) - Reproductive History (#): 6 Para: 6 - Immunization History Immunization Up to Date: No - Psycho Social/Smoking Cessation Hx Smoking History: Never smoked Have you smoked in the past 12 months: No Information on smoking cessation initiated: No Hx Alcohol Use: No Drug/Substance Use Hx: No Substance Use Type: None Review of Systems - Review of Systems Comments:: GENERAL/CONSTITUTIONAL: No fever or chills. No weakness._ HEAD, EYES, EARS, NOSE AND THROAT: No change in vision. No change in hearing. No sore throat._ CARDIOVASCULAR: No chest pain. Reports dyspnea on exertion. RESPIRATORY: Reports productive cough and wheezing. GASTROINTESTINAL: No nausea, vomiting, diarrhea or constipation._ GENITOURINARY: No dysuria, frequency, or change in urination._ MUSCULOSKELETAL: No joint or muscle swelling or pain. No neck or back pain._ SKIN: No rash_ NEUROLOGIC: No headache, vertigo, loss of consciousness, or change in strength/sensation._ ENDOCRINE: No increased thirst. No abnormal weight change_ HEMATOLOGIC/LYMPHATIC: No anemia, easy bleeding, or history of blood clots._ ALLERGIC/IMMUNOLOGIC: No hives or skin allergy._ *Physical Exam - Vital Signs Last Vital Signs Temp Pulse Resp BP Pulse Ox 98.0 F 96 H 16 126/83 96 10/27/19 09:38 10/27/19 09:38 10/27/19 09:38 10/27/19 09:38 10/27/19 09:38 - Physical Exam GENERAL: Awake, alert, and oriented to person/place/time, in no acute distress_ HEAD: No signs of trauma, normocephalic, atraumatic _ EYES: PERRLA, EOMI, sclera anicteric, conjunctiva clear_ ENT: Hearing grossly normal, nares patent, oropharynx clear without exudates. No uvular deviation. Moist mucosa_ NECK: Normal ROM, supple, no lymphadenopathy, JVD, or masses_ LUNGS: No distress, speaks in full sentences, diffuse wheezes in upper and lower lung minor bilaterally. HEART: Regular rate and rhythm, normal S1 and S2, no murmurs appreciated, peripheral pulses normal and equal bilaterally._ ABDOMEN: Soft, nontender, normoactive bowel sounds. No guarding, no rebound. No masses_ EXTREMITIES: Normal inspection, Normal range of motion, no edema. No clubbing or cyanosis_ NEUROLOGICAL: Cranial nerves II through XII grossly intact. Normal speech, normal gait, no focal sensorimotor deficits _ SKIN: Warm, Dry, normal turgor, no rashes or lesions noted_ ED Treatment Course - LABORATORY CBC & Chemistry Diagram: 10/27/19 10:11 10/27/19 10:16 - RADIOLOGY Radiology Studies Ordered: Category Date Time Status CHEST X-RAY PORTABLE* [RAD] Stat Radiology 10/27/19 10:13 Ordered Medical Decision Making - Medical Decision Making 10/27/19 10:20 59F hx of bronchopulmonary aspergillosis, asthma, chronic bronchiectasis, presenting with productive cough and shortness of breath that started 1 week ago. Seen by ENT Dr. Das and given course of bactrim and increase in steroids. Presenting today because she is concerned that her cough is not improving. -cbc, cmp -cxr -duonebs, prednisone -flu swab 10/27/19 11:10 Labs reviewed. Laboratory Last Values WBC 12.6 K/mm3 (4.0-10.0) H 10/27/19 10:11 RBC 4.51 M/mm3 (3.60-5.2) 10/27/19 10:11 Hgb 13.4 GM/dL (10.7-15.3) 10/27/19 10:11 Hct 41.1 % (32.4-45.2) 10/27/19 10:11 MCV 91.0 fl (80-96) 10/27/19 10:11 MCH 29.7 pg (25.7-33.7) 10/27/19 10:11 MCHC 32.6 g/dl (32.0-36.0) 10/27/19 10:11 RDW 13.1 % (11.6-15.6) 10/27/19 10:11 Plt Count 317 K/MM3 (134-434) 10/27/19 10:11 MPV 7.4 fl (7.5-11.1) L 10/27/19 10:11 Absolute Neuts (auto) 9.5 K/mm3 (1.5-8.0) H 10/27/19 10:11 Neutrophils % 75.4 % (42.8-82.8) 10/27/19 10:11 Lymphocytes % 15.0 % (8-40) 10/27/19 10:11 Monocytes % 6.1 % (3.8-10.2) 10/27/19 10:11 Eosinophils % 2.7 % (0-4.5) 10/27/19 10:11 Basophils % 0.8 % (0-2.0) 10/27/19 10:11 Nucleated RBC % 0 % (0-0) 10/27/19 10:11 Sodium 135 mmol/L (136-145) L 10/27/19 10:16 Potassium 4.1 mmol/L (3.5-5.1) 10/27/19 10:16 Chloride 101 mmol/L (98-107) 10/27/19 10:16 Carbon Dioxide 27 mmol/L (21-32) 10/27/19 10:16 Anion Gap 7 MMOL/L (8-16) L 10/27/19 10:16 BUN 14.5 mg/dL (7-18) 10/27/19 10:16 Creatinine 0.9 mg/dL (0.55-1.3) 10/27/19 10:16 Est GFR (CKD-EPI)AfAm 81.69 10/27/19 10:16 Est GFR (CKD-EPI)NonAf 70.48 10/27/19 10:16 Random Glucose 108 mg/dL (74-106) H 10/27/19 10:16 Calcium 9.2 mg/dL (8.5-10.1) 10/27/19 10:16 Total Bilirubin 0.2 mg/dL (0.2-1) 10/27/19 10:16 AST 20 U/L (15-37) 10/27/19 10:16 ALT 32 U/L (13-61) 10/27/19 10:16 Alkaline Phosphatase 78 U/L (45-117) 10/27/19 10:16 Total Protein 8.4 g/dl (6.4-8.2) H 10/27/19 10:16 Albumin 3.7 g/dl (3.4-5.0) 10/27/19 10:16 Influenza A (Rapid) Negative (Negative) 10/27/19 10:11 Influenza B (Rapid) Negative (Negative) 10/27/19 10:11 10/27/19 11:26 CXR shows bronchiectasis. No signs of pulmonary infiltrates, vascular congestive changes, pleural effusion, or PTX. 10/27/19 11:39 Pt reassessed. Reports improvement with breathing treatment. Plan to d/c home with Prednisone 50 mg for 3 days and ENT and PCP f/u. All questions answered. Return precautions given. Pt and family verbalized understanding and agreement with plan. Discharge - Discharge Information Problems reviewed: Yes Clinical Impression/Diagnosis: Cough, Wheezing Condition: Stable Disposition: HOME - Admission No - Follow up/Referral Referrals: Young Abbasi MD [Primary Care Provider] - Edinson Das MD [Non Staff, Medical] - - Patient Discharge Instructions Additional Instructions: Please continue taking your medications from Dr. Das as prescribed. Please start taking 50 mg of Prednisone once a day for three days, starting tomorrow. If you experience any new, worsening, or concerning symptoms, including chest pain or shortness of breath, please return to the emergency department. - Post Discharge Activity
[2019-10-27 10:38] LABS: BASO % 0.8 % (0-2.0); EOS % 2.7 % (0-4.5); HEMATOCRIT 41.1 % (32.4-45.2); HEMOGLOBIN 13.4 GM/dL (10.7-15.3); MCH 29.7 pg (25.7-33.7); MCHC 32.6 g/dl (32.0-36.0); MEAN PLT VOLUME 7.4 fl (7.5-11.1); MONO % 6.1 % (3.8-10.2); NEUT % 75.4 % (42.8-82.8); PLATELET COUNT 317 K/MM3 (134-434); RBC 4.51 M/mm3 (3.60-5.2); RDW 13.1 % (11.6-15.6); WHITE BLOOD COUNT 12.6 K/mm3 (4.0-10.0)
--- NOTE | 2019-10-27 10:53 | PDOC ---
Documentation entered by Zayda Phillips SCRIBE, acting as scribe for Lio Proctor MD. Lio Proctor MD: This documentation has been prepared by the Jacqueline mojica Nirvannie, SCRIBE, under my direction and personally reviewed by me in its entirety. I confirm that the documentation accurately reflects all work, treatment, procedures, and medical decision making performed by me. Attending Attestation - Resident Resident Name: AlarconVictor Hugo - ED Attending Attestation I have performed the following: I have examined & evaluated the patient, The case was reviewed & discussed with the resident, I agree w/resident's findings & plan, Exceptions are as noted - HPI HPI: 10/27/19 10:07 CC: Acute on chronic cough and wheezing. HPI: The patient is a 59 year old female, with a significant past medical history of sciatic pain, asthma, bronchiectasis, bronchopulmonary aspergillosis, and hypertension, who presents to the emergency department with 8 days of an acute on chronic cough and wheezing. As per patient, she saw her ENT 2 days ago and was put on a course of Bactrim and oral steroids. She notes to not feel any better despite her medication compliance, prompting her arrival to the ED. She denies feeling any worse. She denies recent chest pain, fevers, or chills. Allergies: Azithromycin Primary Care Physician: Dr. Abbasi Neurologist: Dr. Chatman ENT: Edinson Casas - Physicial Exam PE: 10/27/19 10:52 Vitals: Triage Vital signs reviewed General Appearance: No acute distress, well nourished well developed, Cardiac: Regular rate and rhythym, no murmurs, no rubs, no gallops, Lungs: Wheezing bilaterally, Abdomen: Soft, non distended, normal bowel sounds, non tender to palpation Extremities: Full range of motion to all extremities, no cyanosis, clubbing, or edema Skin: Warm and dry, no rashes or lesions, no rash, no petechiae Psych: Normal mood, normal affect - Medical Decision Making 10/27/19 10:53 59 years old with underlying asthma bronchiectasis bronchopulmonary aspergillosis 10-day history of cough with wheeze no fever travel to [place] She presents with wheezing not improving with antibiotics We will check chest x-ray labs flu swab treat with duo nebs increase steroids from 10-50 observe and reassess Slightly elevated WBC but patient is chronically on steroids influenza negative chest x-ray with no acute infiltrate patient feels better after DuoNeb's we will increase towards 50 mg daily for 3 days she endorses she will follow-up immediately with her doctor She return to ED for any severe worsening symptoms or for any concerns Findings, the need for follow-up and strict return instructions discussed with patient.
[2019-10-27 11:03] LABS: ALBUMIN 3.7 g/dl (3.4-5.0); BILIRUBIN,TOTAL 0.2 mg/dL (0.2-1); BLOOD UREA NITROGEN 14.5 mg/dL (7-18); CALCIUM 9.2 mg/dL (8.5-10.1); CREATININE 0.9 mg/dL (0.55-1.3); POTASSIUM 4.1 mmol/L (3.5-5.1); TOT PROT 8.4 g/dl (6.4-8.2)
== END 2019-10-27 11:53 | disposition home or self-care (01) ==
LOC: SUPCPDRO 09:31 → JER 09:31
PROC: 3E0F7GC Introduction of Other Therapeutic Substance into Respiratory Tract, Via Natural or Artificial Opening (ICD-10-PCS; principal; 2019-10-27)
DX: J47.9 Bronchiectasis, uncomplicated (principal); I10 Essential (primary) hypertension; J45.909 Unspecified asthma, uncomplicated; Z87.09 Personal history of other diseases of the respiratory system; Z86.19 Personal history of other infectious and parasitic diseases; Z88.1 Allergy status to other antibiotic agents
CPT/HCPCS: 36415; 71045-TC-FY; 80053; 85025; 87804; 94640; 99284-25

== ENCOUNTER 2022-05-15 11:28 | Inpatient (IN) | payer OTHER ==
[2022-05-15] MEDS ORDERED: ALBUTEROL SO4 2.5/IPRATROPIUM 0.5 INH SOL 3 ML VIAL.NEB. NEB ONE (11:45)
[2022-05-15] MEDS ORDERED: DEXAMETHASONE SOD PHOSPHATE 10 MG/1 ML VIAL ONE (11:46)
[2022-05-15] MEDS ORDERED: SODIUM CHLORIDE 1,000 ML IV STA ×2 (13:22→15:29)
[2022-05-15 14:42] LABS: HEMATOCRIT 36.2 % (32.4-45.2); HEMOGLOBIN 11.9 GM/dL (10.7-15.3); MCH 28.8 pg (25.7-33.7); MEAN CELL VOLUME 87.2 fl (80-96); PLATELET COUNT 301 10^3/uL (134-434); RBC 4.14 M/mm3 (3.60-5.2); RDW 13.3 % (11.6-15.6); WHITE BLOOD COUNT 10.6 K/mm3 (4.0-10.0)
[2022-05-15 14:57] LABS: BLOOD UREA NITROGEN 8.5 mg/dL (7-18); CALCIUM 9.2 mg/dL (8.5-10.1)
[2022-05-15 14:58] LABS: ALBUMIN 3.1 g/dl (3.4-5.0)
[2022-05-15 15:01] LABS: CREATININE 0.7 mg/dL (0.55-1.3)
[2022-05-15 15:02] LABS: BILIRUBIN,TOTAL 0.4 mg/dL (0.2-1); TOT PROT 8.2 g/dl (6.4-8.2)
[2022-05-15 15:26] LABS: ANISOCYTOSIS 0; HELMET CELLS 0; HOWELL-JOLLY BODIES 0; MACROCYTOSIS 0; OVALOCYTE 0; ROULEAU 0; SICKELED CELLS 0; TARGET CELLS 0; TEAR DROP CELLS 0; TOXIC GRANULATION 0
[2022-05-15] MEDS ORDERED: ACETAMINOPHEN 1000 MG/100 ML BAG IVPB ONE (15:29)
[2022-05-15] MEDS ORDERED: ACETAMINOPHEN INJECTION 100 ML IVPB ONE (15:48)
[2022-05-15 18:44] LABS: INR 1.3 (0.83-1.09)
[2022-05-15 18:47] LABS: ACTIVATED PTT 30.1 SECONDS (25.2-36.5)
[2022-05-15] MEDS ORDERED: ACETAMINOPHEN 325 MG TABLET (FP) PO PRN (21:41)
[2022-05-15] MEDS ORDERED: DOCUSATE SODIUM 100 MG CAPSULE (FP) PO PRN (21:41)
[2022-05-16] MEDS ORDERED: PIPERACILLIN/TAZOB 3.375 GM 3.375 GM in DEXTROSE 5%-WATER - 50 ML IVPB SCH (02:00)
[2022-05-16] MEDS ORDERED: CEFTRIAXONE 1 GM in DEXTROSE 5%-WATER - 50 ML IVPB SCH (10:00)
[2022-05-16 10:03] LABS: BASO % 0.1 % (0-2.0); HEMATOCRIT 33.2 % (32.4-45.2); HEMOGLOBIN 11.7 GM/dL (10.7-15.3); LYMPH % 13.3 % (8-40); MCH 30.5 pg (25.7-33.7); MCHC 35.1 g/dl (32.0-36.0); MEAN CELL VOLUME 86.8 fl (80-96); MEAN PLT VOLUME 7.3 fl (7.5-11.1); MONO % 6.6 % (3.8-10.2); PLATELET COUNT 301 10^3/uL (134-434); RBC 3.83 M/mm3 (3.60-5.2); RDW 13.3 % (11.6-15.6); WHITE BLOOD COUNT 9.1 K/mm3 (4.0-10.0)
[2022-05-16 10:44] LABS: BLOOD UREA NITROGEN 6.6 mg/dL (7-18); MAGNESIUM 2.1 mg/dL (1.8-2.4)
[2022-05-16 10:47] LABS: CREATININE 0.7 mg/dL (0.55-1.3)
[2022-05-16] MEDS ORDERED: ALBUTEROL SO4 HFA INHALER IH PRN (12:29)
[2022-05-16] MEDS: TIOTROPIUM BROMIDE 2.5 MCG (SPIRIVA) RESPIMAT INHALER IH SCH (15:42)
[2022-05-16] MEDS: PIPERACILLIN/TAZOB 3.375 GM 3.375 GM in DEXTROSE 5%-WATER - 50 ML IVPB SCH (18:07)
[2022-05-16] MEDS: amLODIPine BESYLATE 5 MG TABLET (FP) PO SCH (19:06)
[2022-05-16] MEDS: ATORVASTATIN CA 10 MG TABLET (FP) PO SCH (22:01)
[2022-05-16] MEDS: BUDESONIDE/FORMETEROL FUMARATE 80/4.5 mcg INHALER IH SCH (22:17)
[2022-05-17] MEDS: PIPERACILLIN/TAZOB 3.375 GM 3.375 GM in DEXTROSE 5%-WATER - 50 ML IVPB SCH ×3 (01:10→17:21)
[2022-05-17 08:20] LABS: BASO % 0.3 % (0-2.0); EOS % 0.6 % (0-4.5); HEMATOCRIT 37.9 % (32.4-45.2); HEMOGLOBIN 12.7 GM/dL (10.7-15.3); LYMPH % 22.2 % (8-40); MCH 29.1 pg (25.7-33.7); MCHC 33.4 g/dl (32.0-36.0); MEAN CELL VOLUME 87.3 fl (80-96); MEAN PLT VOLUME 7.6 fl (7.5-11.1); MONO % 7.3 % (3.8-10.2); NEUT % 69.6 % (42.8-82.8); PLATELET COUNT 354 10^3/uL (134-434); RBC 4.35 M/mm3 (3.60-5.2); RDW 13.7 % (11.6-15.6); WHITE BLOOD COUNT 8.3 K/mm3 (4.0-10.0)
[2022-05-17 08:21] LABS: BLOOD UREA NITROGEN 11.7 mg/dL (7-18)
[2022-05-17 08:25] LABS: CREATININE 0.7 mg/dL (0.55-1.3)
[2022-05-17] MEDS: BUDESONIDE/FORMETEROL FUMARATE 80/4.5 mcg INHALER IH SCH ×2 (09:45→21:05)
[2022-05-17] MEDS: TIOTROPIUM BROMIDE 2.5 MCG (SPIRIVA) RESPIMAT INHALER IH SCH (09:45)
[2022-05-17] MEDS: amLODIPine BESYLATE 5 MG TABLET (FP) PO SCH (09:45)
[2022-05-17] MEDS: ATORVASTATIN CA 10 MG TABLET (FP) PO SCH (21:04)
[2022-05-18] MEDS: PIPERACILLIN/TAZOB 3.375 GM 3.375 GM in DEXTROSE 5%-WATER - 50 ML IVPB SCH ×3 (02:08→17:18)
[2022-05-18] MEDS: amLODIPine BESYLATE 5 MG TABLET (FP) PO SCH (09:15)
[2022-05-18] MEDS: TIOTROPIUM BROMIDE 2.5 MCG (SPIRIVA) RESPIMAT INHALER IH SCH (09:15)
[2022-05-18] MEDS: BUDESONIDE/FORMETEROL FUMARATE 80/4.5 mcg INHALER IH SCH ×2 (09:15→21:25)
[2022-05-18] MEDS: ATORVASTATIN CA 10 MG TABLET (FP) PO SCH (21:24)
[2022-05-19] MEDS: PIPERACILLIN/TAZOB 3.375 GM 3.375 GM in DEXTROSE 5%-WATER - 50 ML IVPB SCH ×3 (01:50→17:27)
[2022-05-19] MEDS: amLODIPine BESYLATE 5 MG TABLET (FP) PO SCH (10:42)
[2022-05-19] MEDS: BUDESONIDE/FORMETEROL FUMARATE 80/4.5 mcg INHALER IH SCH ×2 (10:42→21:00)
[2022-05-19] MEDS: TIOTROPIUM BROMIDE 2.5 MCG (SPIRIVA) RESPIMAT INHALER IH SCH (19:24)
[2022-05-19] MEDS: ATORVASTATIN CA 10 MG TABLET (FP) PO SCH (20:59)
[2022-05-20] MEDS: PIPERACILLIN/TAZOB 3.375 GM 3.375 GM in DEXTROSE 5%-WATER - 50 ML IVPB SCH ×3 (01:44→17:19)
[2022-05-20] MEDS: TIOTROPIUM BROMIDE 2.5 MCG (SPIRIVA) RESPIMAT INHALER IH SCH (10:36)
[2022-05-20] MEDS: amLODIPine BESYLATE 5 MG TABLET (FP) PO SCH (10:36)
[2022-05-20] MEDS: BUDESONIDE/FORMETEROL FUMARATE 80/4.5 mcg INHALER IH SCH ×2 (10:36→21:00)
[2022-05-20] MEDS: ENOXAPARIN NA (PORCINE) 40 MG/0.4 ML DISP.SYRIN SQ SCH (14:45)
[2022-05-20] MEDS: ATORVASTATIN CA 10 MG TABLET (FP) PO SCH (21:00)
[2022-05-21] MEDS: PIPERACILLIN/TAZOB 3.375 GM 3.375 GM in DEXTROSE 5%-WATER - 50 ML IVPB SCH ×3 (01:21→17:25)
[2022-05-21 06:47] LABS: HEMATOCRIT 36.7 % (32.4-45.2); HEMOGLOBIN 12.1 GM/dL (10.7-15.3); MCH 28.8 pg (25.7-33.7); MCHC 32.9 g/dl (32.0-36.0); MEAN CELL VOLUME 87.6 fl (80-96); MEAN PLT VOLUME 6.9 fl (7.5-11.1); PLATELET COUNT 420 10^3/uL (134-434); RBC 4.19 M/mm3 (3.60-5.2); RDW 13.6 % (11.6-15.6); WHITE BLOOD COUNT 9.7 K/mm3 (4.0-10.0)
[2022-05-21 07:03] LABS: CALCIUM 9.1 mg/dL (8.5-10.1)
[2022-05-21 07:04] LABS: BLOOD UREA NITROGEN 8.7 mg/dL (7-18)
[2022-05-21 07:07] LABS: CREATININE 0.6 mg/dL (0.55-1.3)
[2022-05-21] MEDS: ENOXAPARIN NA (PORCINE) 40 MG/0.4 ML DISP.SYRIN SQ SCH (09:53)
[2022-05-21] MEDS: amLODIPine BESYLATE 5 MG TABLET (FP) PO SCH (09:53)
[2022-05-21] MEDS: BUDESONIDE/FORMETEROL FUMARATE 80/4.5 mcg INHALER IH SCH ×2 (10:02→21:00)
[2022-05-21] MEDS: TIOTROPIUM BROMIDE 2.5 MCG (SPIRIVA) RESPIMAT INHALER IH SCH (10:02)
[2022-05-21] MEDS ORDERED: diphenhydrAMINE HCL 25 MG CAPSULE (FP) PO PRN (12:56)
[2022-05-21] MEDS: ATORVASTATIN CA 10 MG TABLET (FP) PO SCH (21:00)
[2022-05-22] MEDS: PIPERACILLIN/TAZOB 3.375 GM 3.375 GM in DEXTROSE 5%-WATER - 50 ML IVPB SCH ×3 (01:01→17:12)
[2022-05-22] MEDS: MELATONIN 5 MG TABLETS PO ONE ×2 (01:40→01:44)
[2022-05-22] MEDS: BUDESONIDE/FORMETEROL FUMARATE 80/4.5 mcg INHALER IH SCH ×2 (09:48→21:08)
[2022-05-22] MEDS: TIOTROPIUM BROMIDE 2.5 MCG (SPIRIVA) RESPIMAT INHALER IH SCH (09:49)
[2022-05-22] MEDS: ENOXAPARIN NA (PORCINE) 40 MG/0.4 ML DISP.SYRIN SQ SCH (09:49)
[2022-05-22] MEDS: amLODIPine BESYLATE 5 MG TABLET (FP) PO SCH (09:49)
[2022-05-22 12:03] LABS: BASO % 0.5 % (0-2.0); EOS % 9.4 % (0-4.5); HEMATOCRIT 37.3 % (32.4-45.2); HEMOGLOBIN 12.5 GM/dL (10.7-15.3); LYMPH % 17.8 % (8-40); MCH 29.2 pg (25.7-33.7); MCHC 33.5 g/dl (32.0-36.0); MEAN CELL VOLUME 87.2 fl (80-96); MEAN PLT VOLUME 6.4 fl (7.5-11.1); MONO % 6.4 % (3.8-10.2); NEUT % 65.9 % (42.8-82.8); PLATELET COUNT 443 10^3/uL (134-434); RBC 4.28 M/mm3 (3.60-5.2); RDW 13.5 % (11.6-15.6); WHITE BLOOD COUNT 10.2 K/mm3 (4.0-10.0)
[2022-05-22 12:23] LABS: CALCIUM 9.9 mg/dL (8.5-10.1)
[2022-05-22 12:24] LABS: BLOOD UREA NITROGEN 11.6 mg/dL (7-18); MAGNESIUM 2.3 mg/dL (1.8-2.4)
[2022-05-22 12:27] LABS: CREATININE 0.8 mg/dL (0.55-1.3)
[2022-05-22 12:28] LABS: BILIRUBIN,TOTAL 0.4 mg/dL (0.2-1); TOT PROT 8.7 g/dl (6.4-8.2)
[2022-05-22 13:03] VITALS: BMI 22.1
[2022-05-22] MEDS: GABAPENTIN 100 MG CAPSULE PO SCH ×2 (14:36→21:09)
[2022-05-22] MEDS: ATORVASTATIN CA 10 MG TABLET (FP) PO SCH (21:09)
[2022-05-23] MEDS: PIPERACILLIN/TAZOB 3.375 GM 3.375 GM in DEXTROSE 5%-WATER - 50 ML IVPB SCH ×2 (01:43→09:21)
[2022-05-23] MEDS: GABAPENTIN 100 MG CAPSULE PO SCH (05:32)
[2022-05-23 06:43] LABS: BASO % 0.6 % (0-2.0); EOS % 10.7 % (0-4.5); HEMATOCRIT 36.9 % (32.4-45.2); LYMPH % 21.6 % (8-40); MCH 28.6 pg (25.7-33.7); MCHC 32.5 g/dl (32.0-36.0); MEAN CELL VOLUME 87.9 fl (80-96); MEAN PLT VOLUME 6.6 fl (7.5-11.1); MONO % 8.1 % (3.8-10.2); PLATELET COUNT 459 10^3/uL (134-434); RDW 13.6 % (11.6-15.6); WHITE BLOOD COUNT 7.4 K/mm3 (4.0-10.0)
[2022-05-23 06:53] VITALS: RESP 18
[2022-05-23 06:59] LABS: BLOOD UREA NITROGEN 7.4 mg/dL (7-18); CALCIUM 9.4 mg/dL (8.5-10.1)
[2022-05-23 07:00] LABS: MAGNESIUM 2.2 mg/dL (1.8-2.4)
[2022-05-23 07:02] LABS: CREATININE 0.8 mg/dL (0.55-1.3)
[2022-05-23 07:04] LABS: BILIRUBIN,TOTAL 0.4 mg/dL (0.2-1); TOT PROT 8.3 g/dl (6.4-8.2)
[2022-05-23] MEDS ORDERED: PIPERACILLIN/TAZOBACTAM 3.375 GM VIAL IVPB ONE (09:04)
[2022-05-23] MEDS: amLODIPine BESYLATE 5 MG TABLET (FP) PO SCH (09:21)
[2022-05-23] MEDS: BUDESONIDE/FORMETEROL FUMARATE 80/4.5 mcg INHALER IH SCH (09:21)
[2022-05-23] MEDS: ENOXAPARIN NA (PORCINE) 40 MG/0.4 ML DISP.SYRIN SQ SCH (09:21)
[2022-05-23] MEDS: TIOTROPIUM BROMIDE 2.5 MCG (SPIRIVA) RESPIMAT INHALER IH SCH (09:22)
[2022-05-23 10:55] VITALS: BP 119/75; PULSE 86; TEMP 98.7
== END 2022-05-23 11:56 | disposition home or self-care (01) | DRG 137 ==
LOC: JER 11:28 → JERBED 17:12 → INTOOBSV 17:12 → UNDOADMOB 17:12 → OBSVTOIN 17:12 → J5S 05-16 03:09 → JERBED 05-16 03:09 → J4S 05-16 21:44 → J5S 05-16 21:44 → J4S 05-19 16:45 → INTOOBSV 05-19 16:45 → OBSVTOIN 05-19 16:45 → J5S 05-19 16:45
PROVIDERS: ADMIT Internal Medicine; ATTEND Nurse Practitioner Family
DX: J15.1 Pneumonia due to Pseudomonas (principal); I10 Essential (primary) hypertension; E78.5 Hyperlipidemia, unspecified; K59.00 Constipation, unspecified; D72.829 Elevated white blood cell count, unspecified; R63.4 Abnormal weight loss; Z68.22 Body mass index [BMI] 22.0-22.9, adult; J45.901 Unspecified asthma with (acute) exacerbation; J47.9 Bronchiectasis, uncomplicated
CPT/HCPCS: 0241U-QW; 36415; 71045-TC-FY; 71046-TC-FY; 71275-TC; 80048; 80053; 83735; 84484; 85025; 85027; 85610; 85730; 86140; 87070; 87116; 87186; 87205; 87206; 93005; 93010; 99285-25; Q9967

== ENCOUNTER 2023-04-29 06:33 | Inpatient (IN) | payer OTHER ==
[2023-04-29 06:46] VITALS: BMI 27.1
[2023-04-29] MEDS ORDERED: ALBUTEROL SO4 2.5/IPRATROPIUM 0.5 INH SOL 3 ML VIAL.NEB. NEB ONE ×3 (07:23→15:06)
[2023-04-29] MEDS ORDERED: methylPREDNISolone NA SUCC 125 MG/2 ML VIAL IVPB ONE (07:23)
[2023-04-29] MEDS ORDERED: methylPREDNISolone NA SUCC 125 MG/2 ML VIAL ONE (07:28)
[2023-04-29 08:10] LABS: BASO % 0.2 % (0-2.0); EOS % 0.5 % (0-4.5); HEMATOCRIT 33.9 % (32.4-45.2); HEMOGLOBIN 11.4 GM/dL (10.7-15.3); LYMPH % 11.4 % (8-40); MCH 28.8 pg (25.7-33.7); MCHC 33.7 g/dl (32.0-36.0); MEAN CELL VOLUME 85.4 fl (80-96); MEAN PLT VOLUME 7.3 fl (7.5-11.1); MONO % 10.6 % (3.8-10.2); NEUT % 77.3 % (42.8-82.8); PLATELET COUNT 392 10^3/uL (134-434); RBC 3.97 M/mm3 (3.60-5.2); RDW 13.6 % (11.6-15.6); WHITE BLOOD COUNT 11.2 K/mm3 (4.0-10.0)
[2023-04-29 08:28] LABS: CALCIUM 8.5 mg/dL (8.5-10.1)
[2023-04-29 08:29] LABS: ALBUMIN 2.5 g/dl (3.4-5.0); BLOOD UREA NITROGEN 6.7 mg/dL (7-18); MAGNESIUM 1.8 mg/dL (1.8-2.4)
[2023-04-29 08:32] LABS: CREATININE 0.6 mg/dL (0.55-1.3)
[2023-04-29 08:33] LABS: BILIRUBIN,TOTAL 0.4 mg/dL (0.2-1); TOT PROT 7.7 g/dl (6.4-8.2)
[2023-04-29] MEDS ORDERED: PIPERACILLIN/TAZOB 4.5 GM 4.5 GM in DEXTROSE 5%-WATER 100 ML IVPB ONE (08:42)
[2023-04-29] MEDS ORDERED: PIPERACILLIN/TAZOB 4.5 GM 4.5 GM/100 ML BAG IVPB ONE (08:45)
[2023-04-29] MEDS ORDERED: POTASSIUM CHLORIDE TABS 20 MEQ TABLET.ER (FP) PO ONE ×2 (09:07→09:10)
[2023-04-29] MEDS ORDERED: DOCUSATE SODIUM 100 MG CAPSULE (FP) PO PRN (10:28)
[2023-04-29] MEDS ORDERED: ALBUTEROL SO4 2.5/IPRATROPIUM 0.5 INH SOL 3 ML VIAL.NEB. NEB PRN (10:31)
[2023-04-29] MEDS ORDERED: GABAPENTIN 100 MG CAPSULE ONE (14:05)
[2023-04-29] MEDS: GABAPENTIN 100 MG CAPSULE PO SCH ×2 (14:06→21:38)
[2023-04-29] MEDS: ALBUTEROL SO4 2.5/IPRATROPIUM 0.5 INH SOL 3 ML VIAL.NEB. NEB SCH ×2 (15:05→19:48)
[2023-04-29] MEDS ORDERED: PIPERACILLIN/TAZOB 3.375 GM 3.375 GM in DEXTROSE 5%-WATER - 50 ML IVPB SCH (18:00)
[2023-04-29] MEDS ORDERED: PIPERACILLIN/TAZOB 3.375 GM 3.375 GM/50 ML BAG IVPB ONE (18:16)
[2023-04-29] MEDS: PIPERACILLIN/TAZOB 3.375 GM 3.375 GM in DEXTROSE 5%-WATER - 50 ML IVPB SCH (18:20)
[2023-04-29] MEDS: HEPARIN NA (PORCINE) 5,000 UNITS/ML 1ML VIAL SQ SCH ×2 (21:38→21:42)
[2023-04-29] MEDS: ATORVASTATIN CA 10 MG TABLET (FP) PO SCH (21:39)
[2023-04-30] MEDS: PIPERACILLIN/TAZOB 3.375 GM 3.375 GM in DEXTROSE 5%-WATER - 50 ML IVPB SCH ×3 (01:51→17:36)
[2023-04-30] MEDS: GABAPENTIN 100 MG CAPSULE PO SCH ×3 (05:54→21:35)
[2023-04-30] MEDS: ALBUTEROL SO4 2.5/IPRATROPIUM 0.5 INH SOL 3 ML VIAL.NEB. NEB SCH ×4 (07:47→20:05)
[2023-04-30] MEDS ORDERED: POTASSIUM CHLORIDE TABS 20 MEQ TABLET.ER (FP) PO ONE (09:44)
[2023-04-30] MEDS ORDERED: ALBUTEROL SO4 HFA INHALER IH PRN (09:50)
[2023-04-30] MEDS ORDERED: predniSONE 20 MG TABLET (UD) PO SCH (10:00)
[2023-04-30 10:12] LABS: BASO % 0.2 % (0-2.0); HEMATOCRIT 32.4 % (32.4-45.2); HEMOGLOBIN 10.8 GM/dL (10.7-15.3); LYMPH % 11.9 % (8-40); MCH 29.1 pg (25.7-33.7); MCHC 33.2 g/dl (32.0-36.0); MEAN CELL VOLUME 87.6 fl (80-96); MEAN PLT VOLUME 7.3 fl (7.5-11.1); MONO % 10.4 % (3.8-10.2); NEUT % 77.5 % (42.8-82.8); PLATELET COUNT 446 10^3/uL (134-434); RDW 13.4 % (11.6-15.6); WHITE BLOOD COUNT 9.4 K/mm3 (4.0-10.0)
[2023-04-30 10:27] LABS: POTASSIUM 3.6 mmol/L (3.5-5.1)
[2023-04-30] MEDS ORDERED: MAGNESIUM 1GM/D5W 100ML - 100 ML IVPB IVPB ONE (10:30)
[2023-04-30 10:31] LABS: BLOOD UREA NITROGEN 13.7 mg/dL (7-18)
[2023-04-30 10:34] LABS: CREATININE 0.7 mg/dL (0.55-1.3)
[2023-04-30] MEDS: HEPARIN NA (PORCINE) 5,000 UNITS/ML 1ML VIAL SQ SCH ×2 (11:52→21:35)
[2023-04-30] MEDS ORDERED: methylPREDNISolone NA SUCC 40 MG/1 ML VIAL IVPUSH ONE (12:03)
[2023-04-30] MEDS: BUDESONIDE/FORMETEROL FUMARATE 80/4.5 mcg INHALER IH SCH ×2 (12:45→21:35)
[2023-04-30] MEDS: TIOTROPIUM BROMIDE 2.5 MCG (SPIRIVA) RESPIMAT INHALER IH SCH (12:52)
[2023-04-30] MEDS: guaiFENesin/D-METHORPHAN HB 10 ML UNIT-DOSE CUPS PO PRN ×2 (13:22→21:39)
[2023-04-30] MEDS: methylPREDNISolone NA SUCC 40 MG/1 ML VIAL IVPUSH SCH (17:31)
[2023-04-30] MEDS: ATORVASTATIN CA 10 MG TABLET (FP) PO SCH (21:35)
[2023-05-01] MEDS: PIPERACILLIN/TAZOB 3.375 GM 3.375 GM in DEXTROSE 5%-WATER - 50 ML IVPB SCH ×3 (02:37→17:03)
[2023-05-01] MEDS: methylPREDNISolone NA SUCC 40 MG/1 ML VIAL IVPUSH SCH ×3 (02:37→17:03)
[2023-05-01] MEDS: GABAPENTIN 100 MG CAPSULE PO SCH ×3 (05:43→21:10)
[2023-05-01] MEDS: ALBUTEROL SO4 2.5/IPRATROPIUM 0.5 INH SOL 3 ML VIAL.NEB. NEB SCH ×5 (08:00→20:29)
[2023-05-01] MEDS: HEPARIN NA (PORCINE) 5,000 UNITS/ML 1ML VIAL SQ SCH ×2 (10:15→21:10)
[2023-05-01] MEDS: TIOTROPIUM BROMIDE 2.5 MCG (SPIRIVA) RESPIMAT INHALER IH SCH (10:16)
[2023-05-01] MEDS: BUDESONIDE/FORMETEROL FUMARATE 80/4.5 mcg INHALER IH SCH ×2 (10:16→21:10)
[2023-05-01 11:06] LABS: HEMATOCRIT 35.5 % (32.4-45.2); MCH 29.4 pg (25.7-33.7); MCHC 33.9 g/dl (32.0-36.0); MEAN CELL VOLUME 86.8 fl (80-96); MEAN PLT VOLUME 6.9 fl (7.5-11.1); PLATELET COUNT 504 10^3/uL (134-434); RBC 4.09 M/mm3 (3.60-5.2); RDW 13.4 % (11.6-15.6); WHITE BLOOD COUNT 7.9 K/mm3 (4.0-10.0)
[2023-05-01 11:24] LABS: POTASSIUM 3.9 mmol/L (3.5-5.1)
[2023-05-01 11:26] LABS: BLOOD UREA NITROGEN 14.6 mg/dL (7-18); MAGNESIUM 2.3 mg/dL (1.8-2.4)
[2023-05-01 11:29] LABS: CREATININE 0.8 mg/dL (0.55-1.3)
[2023-05-01 12:02] LABS: ANISOCYTOSIS 0; HELMET CELLS 0; HOWELL-JOLLY BODIES 0; MACROCYTOSIS 0; OVALOCYTE 0; ROULEAU 0; SICKELED CELLS 0; TARGET CELLS 0; TEAR DROP CELLS 0; TOXIC GRANULATION 0
[2023-05-01] MEDS: ATORVASTATIN CA 10 MG TABLET (FP) PO SCH (21:10)
[2023-05-01] MEDS: guaiFENesin/D-METHORPHAN HB 10 ML UNIT-DOSE CUPS PO PRN (22:30)
[2023-05-02] MEDS: PIPERACILLIN/TAZOB 3.375 GM 3.375 GM in DEXTROSE 5%-WATER - 50 ML IVPB SCH ×2 (02:45→09:03)
[2023-05-02] MEDS: methylPREDNISolone NA SUCC 40 MG/1 ML VIAL IVPUSH SCH ×3 (02:45→17:26)
[2023-05-02] MEDS: GABAPENTIN 100 MG CAPSULE PO SCH ×3 (05:11→21:10)
[2023-05-02 08:46] LABS: HEMOGLOBIN 11.2 GM/dL (10.7-15.3); LYMPH % 14.4 % (8-40); MCHC 31.9 g/dl (32.0-36.0); MEAN CELL VOLUME 87.8 fl (80-96); MEAN PLT VOLUME 7.1 fl (7.5-11.1); MONO % 8.4 % (3.8-10.2); NEUT % 77.2 % (42.8-82.8); PLATELET COUNT 493 10^3/uL (134-434); RBC 3.99 M/mm3 (3.60-5.2); RDW 13.5 % (11.6-15.6); WHITE BLOOD COUNT 6.8 K/mm3 (4.0-10.0)
[2023-05-02] MEDS: BUDESONIDE/FORMETEROL FUMARATE 80/4.5 mcg INHALER IH SCH ×2 (09:04→21:12)
[2023-05-02] MEDS: HEPARIN NA (PORCINE) 5,000 UNITS/ML 1ML VIAL SQ SCH ×2 (09:04→21:10)
[2023-05-02] MEDS: ALBUTEROL SO4 2.5/IPRATROPIUM 0.5 INH SOL 3 ML VIAL.NEB. NEB SCH ×4 (09:28→19:52)
[2023-05-02 09:34] LABS: BLOOD UREA NITROGEN 14.8 mg/dL (7-18); CALCIUM 8.8 mg/dL (8.5-10.1); CREATININE 0.6 mg/dL (0.55-1.3); POTASSIUM 4.3 mmol/L (3.5-5.1)
[2023-05-02] MEDS: CEFTRIAXONE 1 GM in DEXTROSE 5%-WATER - 50 ML IVPB SCH (16:20)
[2023-05-02] MEDS: HYDROCORTISONE 2.5% TOPICAL CREAM 30 GM TUBE RC SCH (17:25)
[2023-05-02] MEDS: ATORVASTATIN CA 10 MG TABLET (FP) PO SCH (21:10)
[2023-05-03] MEDS: methylPREDNISolone NA SUCC 40 MG/1 ML VIAL IVPUSH SCH ×3 (01:04→17:31)
[2023-05-03] MEDS: GABAPENTIN 100 MG CAPSULE PO SCH ×3 (05:28→21:42)
[2023-05-03] MEDS: ALBUTEROL SO4 2.5/IPRATROPIUM 0.5 INH SOL 3 ML VIAL.NEB. NEB SCH ×4 (08:27→20:47)
[2023-05-03] MEDS: HEPARIN NA (PORCINE) 5,000 UNITS/ML 1ML VIAL SQ SCH ×2 (09:08→21:42)
[2023-05-03] MEDS: CEFTRIAXONE 1 GM in DEXTROSE 5%-WATER - 50 ML IVPB SCH (09:08)
[2023-05-03] MEDS: HYDROCORTISONE 2.5% TOPICAL CREAM 30 GM TUBE RC SCH (09:12)
[2023-05-03] MEDS: BUDESONIDE/FORMETEROL FUMARATE 80/4.5 mcg INHALER IH SCH ×2 (09:12→21:44)
[2023-05-03 09:58] LABS: BASO % 0.1 % (0-2.0); HEMATOCRIT 35.7 % (32.4-45.2); HEMOGLOBIN 12.1 GM/dL (10.7-15.3); LYMPH % 17.5 % (8-40); MCH 29.2 pg (25.7-33.7); MEAN PLT VOLUME 6.8 fl (7.5-11.1); MONO % 4.6 % (3.8-10.2); NEUT % 77.8 % (42.8-82.8); PLATELET COUNT 530 10^3/uL (134-434); RBC 4.16 M/mm3 (3.60-5.2); RDW 13.6 % (11.6-15.6); WHITE BLOOD COUNT 6.6 K/mm3 (4.0-10.0)
[2023-05-03] MEDS: ATORVASTATIN CA 10 MG TABLET (FP) PO SCH (21:42)
[2023-05-04] MEDS: methylPREDNISolone NA SUCC 40 MG/1 ML VIAL IVPUSH SCH ×2 (02:16→10:37)
[2023-05-04] MEDS: GABAPENTIN 100 MG CAPSULE PO SCH ×3 (05:23→21:31)
[2023-05-04] MEDS: ALBUTEROL SO4 2.5/IPRATROPIUM 0.5 INH SOL 3 ML VIAL.NEB. NEB SCH ×5 (07:30→21:12)
[2023-05-04 09:55] LABS: BASO % 0.2 % (0-2.0); HEMATOCRIT 38.1 % (32.4-45.2); HEMOGLOBIN 12.4 GM/dL (10.7-15.3); LYMPH % 12.3 % (8-40); MCH 28.5 pg (25.7-33.7); MCHC 32.7 g/dl (32.0-36.0); MEAN CELL VOLUME 87.3 fl (80-96); MEAN PLT VOLUME 6.5 fl (7.5-11.1); MONO % 5.6 % (3.8-10.2); NEUT % 81.9 % (42.8-82.8); PLATELET COUNT 567 10^3/uL (134-434); RBC 4.36 M/mm3 (3.60-5.2); RDW 13.4 % (11.6-15.6); WHITE BLOOD COUNT 7.5 K/mm3 (4.0-10.0)
[2023-05-04 10:19] LABS: POTASSIUM 4.1 mmol/L (3.5-5.1)
[2023-05-04 10:20] LABS: CALCIUM 8.5 mg/dL (8.5-10.1)
[2023-05-04 10:21] LABS: BLOOD UREA NITROGEN 18.7 mg/dL (7-18)
[2023-05-04 10:24] LABS: CREATININE 0.7 mg/dL (0.55-1.3)
[2023-05-04] MEDS: HEPARIN NA (PORCINE) 5,000 UNITS/ML 1ML VIAL SQ SCH ×2 (10:34→21:30)
[2023-05-04] MEDS: CEFTRIAXONE 1 GM in DEXTROSE 5%-WATER - 50 ML IVPB SCH (10:34)
[2023-05-04] MEDS: BUDESONIDE/FORMETEROL FUMARATE 80/4.5 mcg INHALER IH SCH ×2 (10:37→21:31)
[2023-05-04] MEDS: HYDROCORTISONE 2.5% TOPICAL CREAM 30 GM TUBE RC SCH (10:37)
[2023-05-04] MEDS: guaiFENesin/D-METHORPHAN HB 10 ML UNIT-DOSE CUPS PO PRN (10:40)
[2023-05-04] MEDS: ATORVASTATIN CA 10 MG TABLET (FP) PO SCH (21:31)
[2023-05-05] MEDS: GABAPENTIN 100 MG CAPSULE PO SCH ×3 (05:54→21:14)
[2023-05-05] MEDS: ALBUTEROL SO4 2.5/IPRATROPIUM 0.5 INH SOL 3 ML VIAL.NEB. NEB SCH ×4 (08:19→20:38)
[2023-05-05] MEDS: CEFTRIAXONE 1 GM in DEXTROSE 5%-WATER - 50 ML IVPB SCH (09:40)
[2023-05-05] MEDS: HEPARIN NA (PORCINE) 5,000 UNITS/ML 1ML VIAL SQ SCH ×2 (09:41→21:14)
[2023-05-05] MEDS: HYDROCORTISONE 2.5% TOPICAL CREAM 30 GM TUBE RC SCH (09:42)
[2023-05-05] MEDS: BUDESONIDE/FORMETEROL FUMARATE 80/4.5 mcg INHALER IH SCH ×2 (09:42→21:15)
[2023-05-05] MEDS: methylPREDNISolone NA SUCC 40 MG/1 ML VIAL IVPUSH SCH ×2 (13:53→21:14)
[2023-05-05] MEDS: ATORVASTATIN CA 10 MG TABLET (FP) PO SCH (21:14)
[2023-05-06] MEDS: GABAPENTIN 100 MG CAPSULE PO SCH ×2 (05:35→13:34)
[2023-05-06] MEDS: ALBUTEROL SO4 2.5/IPRATROPIUM 0.5 INH SOL 3 ML VIAL.NEB. NEB SCH ×2 (07:50→11:05)
[2023-05-06] MEDS ORDERED: AMOX TR/POT CLAV 875MG/125MG TABLETS (FP) PO SCH (08:00)
[2023-05-06] MEDS: HEPARIN NA (PORCINE) 5,000 UNITS/ML 1ML VIAL SQ SCH (09:25)
[2023-05-06] MEDS: methylPREDNISolone NA SUCC 40 MG/1 ML VIAL IVPUSH SCH (09:25)
[2023-05-06] MEDS: HYDROCORTISONE 2.5% TOPICAL CREAM 30 GM TUBE RC SCH (09:26)
[2023-05-06] MEDS: BUDESONIDE/FORMETEROL FUMARATE 80/4.5 mcg INHALER IH SCH (09:26)
[2023-05-06 11:24] VITALS: PULSE 109
[2023-05-06 11:41] VITALS: BP 114/70; RESP 18; TEMP 97.7
[2023-05-06] MEDS ORDERED: PANTOPRAZOLE 40 MG TABLET PO SCH (12:45)
[2023-05-06] MEDS ORDERED: predniSONE 20 MG TABLET (UD) PO SCH (12:45)
== END 2023-05-06 15:09 | disposition home or self-care (01) | DRG 137 ==
LOC: JER 06:33 → JERBED 10:15 → J5S 18:51
PROVIDERS: ADMIT Internal Medicine; ATTEND Internal Medicine
DX: J14 Pneumonia due to Hemophilus influenzae (principal); J45.41 Moderate persistent asthma with (acute) exacerbation; J47.9 Bronchiectasis, uncomplicated; I10 Essential (primary) hypertension; E78.5 Hyperlipidemia, unspecified
CPT/HCPCS: 0241U-QW; 36415; 71045-TC-FY; 71250-TC; 80048; 80053; 82785; 83735; 84443; 84484; 85025; 86140; 87040; 87070; 87077; 87205; 93005; 93010; 94010; 94640; 94761; 99285-25; J1644

== ENCOUNTER 2023-08-04 21:02 | Inpatient (IN) | payer OTHER ==
[2023-08-04] MEDS ORDERED: methylPREDNISolone NA SUCC 125 MG/2 ML VIAL IVPB ONE (21:39)
[2023-08-04] MEDS ORDERED: ALBUTEROL SO4 2.5/IPRATROPIUM 0.5 INH SOL 3 ML VIAL.NEB. NEB ONE ×2 (21:39→22:11)
[2023-08-04] MEDS ORDERED: CEFTRIAXONE 1,000 MG in DEXTROSE 5%-WATER - 50 ML IVPB ONE (22:06)
[2023-08-04] MEDS ORDERED: DOXYCYCLINE INJECTION 100 MG in DEXTROSE 5%-WATER 100 ML IVPB ONE (22:07)
[2023-08-04] MEDS ORDERED: methylPREDNISolone NA SUCC 125 MG/2 ML VIAL ONE (22:10)
[2023-08-04 22:15] LABS: VENOUS PCO2 54.7 mmHg (38-52); VENOUS PH 7.328 (7.310-7.410)
[2023-08-04] MEDS ORDERED: PIPERACILLIN/TAZOB 3.375 GM 3.375 GM in DEXTROSE 5%-WATER - 50 ML IVPB ONE (22:15)
[2023-08-04] MEDS ORDERED: VANCOMYCIN 1,000 MG in DEXTROSE 5%-WATER - 250 ML IVPB ONE (22:15)
[2023-08-04 22:16] LABS: BASO % 0.2 % (0-2.0); EOS % 0.1 % (0-4.5); HEMATOCRIT 40.5 % (32.4-45.2); HEMOGLOBIN 13.4 GM/dL (10.7-15.3); LYMPH % 3.4 % (8-40); MCH 29.5 pg (25.7-33.7); MEAN CELL VOLUME 89.4 fl (80-96); MEAN PLT VOLUME 6.7 fl (7.5-11.1); MONO % 4.9 % (3.8-10.2); NEUT % 91.4 % (42.8-82.8); PLATELET COUNT 317 10^3/uL (134-434); RBC 4.53 M/mm3 (3.60-5.2); RDW 14.6 % (11.6-15.6); WHITE BLOOD COUNT 12.3 K/mm3 (4.0-10.0)
[2023-08-04 22:21] LABS: INR 1.09 (0.83-1.09); PROTHROMBIN TIME (PATIENT) 12.6 SEC (9.7-13.0)
[2023-08-04 22:24] LABS: ACTIVATED PTT 30.3 SECONDS (25.2-36.5)
[2023-08-04 22:35] LABS: ALBUMIN 3.4 g/dl (3.4-5.0); BLOOD UREA NITROGEN 11.3 mg/dL (7-18); CALCIUM 9.1 mg/dL (8.5-10.1)
[2023-08-04] MEDS ORDERED: PIPERACILLIN/TAZOB 3.375 GM 3.375 GM/50 ML BAG IVPB ONE (22:36)
[2023-08-04 22:38] LABS: CREATININE 0.7 mg/dL (0.55-1.3)
[2023-08-04 22:40] LABS: BILIRUBIN,TOTAL 0.2 mg/dL (0.2-1); TOT PROT 8.3 g/dl (6.4-8.2)
[2023-08-04 22:43] LABS: N-TERMINAL BNP 94.5 pg/ml (5-125)
[2023-08-04] MEDS ORDERED: SODIUM CHLORIDE 1,000 ML IV STA (22:51)
[2023-08-04] MEDS ORDERED: VANCOMYCIN 1 GRAM (PRE-DOCKED) 1,000 MG/250 ML BAG IVPB ONE (23:06)
[2023-08-04] MEDS ORDERED: ACETAMINOPHEN 325 MG TABLET (FP) PO STA (23:28)
[2023-08-04] MEDS ORDERED: ACETAMINOPHEN 1000 MG/100 ML BAG IVPB ONE (23:31)
[2023-08-04] MEDS ORDERED: MAGNESIUM SULF 50% (8.12 MEQ/2 ML-1 GM VIAL) IVPB ONE (23:36)
[2023-08-04] MEDS ORDERED: ACETAMINOPHEN INJECTION 100 ML IVPB ONE (23:48)
[2023-08-05] MEDS ORDERED: DOCUSATE SODIUM 100 MG CAPSULE (FP) PO PRN (00:28)
[2023-08-05] MEDS ORDERED: ALBUTEROL SO4 0.083% IH SOL 2.5 MG/3 ML VIAL.NEB. NEB PRN ×2 (00:28→07:54)
[2023-08-05] MEDS ORDERED: ACETAMINOPHEN 1000 MG/100 ML BAG IVPB PRN (00:34)
[2023-08-05] MEDS ORDERED: guaiFENesin/D-METHORPHAN HB 10 ML UNIT-DOSE CUPS PO PRN (00:39)
[2023-08-05 02:12] LABS: MAGNESIUM 2.1 mg/dL (1.8-2.4)
[2023-08-05 02:15] LABS: PHOSPHOROUS 2.8 mg/dL (2.5-4.9)
[2023-08-05] MEDS: PIPERACILLIN/TAZOB 3.375 GM 3.375 GM in DEXTROSE 5%-WATER - 50 ML IVPB SCH ×2 (02:15→08:21)
[2023-08-05] MEDS ORDERED: MAGNESIUM SULFATE IN WATER 2 GM/50 ML IVPB IVPB ONE (03:05)
[2023-08-05 05:35] VITALS: BMI 26.4
[2023-08-05] MEDS: ALBUTEROL SO4 2.5/IPRATROPIUM 0.5 INH SOL 3 ML VIAL.NEB. NEB SCH ×4 (08:00→20:05)
[2023-08-05] MEDS: methylPREDNISolone NA SUCC 40 MG/1 ML VIAL IVPUSH SCH ×2 (08:21→17:11)
[2023-08-05 09:37] LABS: HEMATOCRIT 36.6 % (32.4-45.2); HEMOGLOBIN 12.1 GM/dL (10.7-15.3); MCH 29.4 pg (25.7-33.7); MCHC 32.9 g/dl (32.0-36.0); MEAN CELL VOLUME 89.2 fl (80-96); PLATELET COUNT 289 10^3/uL (134-434); RBC 4.11 M/mm3 (3.60-5.2); RDW 14.2 % (11.6-15.6); WHITE BLOOD COUNT 12.2 K/mm3 (4.0-10.0)
[2023-08-05] MEDS ORDERED: VANCOMYCIN/WATER FOR INJ (PEG) 1,000 MG/200 ML BAG IVPB SCH (10:00)
[2023-08-05] MEDS: PANTOPRAZOLE 40 MG TABLET PO SCH (10:00)
[2023-08-05] MEDS: ENOXAPARIN NA (PORCINE) 40 MG/0.4 ML DISP.SYRIN SQ SCH (10:00)
[2023-08-05] MEDS ORDERED: TIOTROPIUM BROMIDE 2.5 MCG (SPIRIVA) RESPIMAT INHALER IH SCH (10:00)
[2023-08-05] MEDS: BUDESONIDE/FORMETEROL FUMARATE 80/4.5 mcg INHALER IH SCH ×2 (10:01→21:20)
[2023-08-05] MEDS: HYDROCORTISONE 2.5% TOPICAL CREAM 30 GM TUBE RC SCH ×2 (10:02→15:52)
[2023-08-05 11:06] LABS: ANISOCYTOSIS 0; HELMET CELLS 0; HOWELL-JOLLY BODIES 0; MACROCYTOSIS 0; OVALOCYTE 0; ROULEAU 0; SICKELED CELLS 0; TARGET CELLS 0; TEAR DROP CELLS 0; TOXIC GRANULATION 0
[2023-08-05] MEDS: OSELTAMIVIR PHOSPHATE 75 MG CAPSULE PO SCH ×2 (11:23→21:20)
[2023-08-05] MEDS: GABAPENTIN 100 MG CAPSULE PO SCH ×2 (13:17→21:19)
[2023-08-05] MEDS: CEFTRIAXONE 1 GM in DEXTROSE 5%-WATER - 50 ML IVPB SCH (15:35)
[2023-08-05] MEDS: ATORVASTATIN CA 10 MG TABLET (FP) PO SCH (21:19)
[2023-08-05] MEDS: DOXYCYCLINE INJECTION 100 MG in DEXTROSE 5%-WATER 100 ML IVPB SCH (21:19)
[2023-08-06] MEDS ORDERED: ACETAMINOPHEN 325 MG TABLET (FP) PO PRN (00:28)
[2023-08-06] MEDS: methylPREDNISolone NA SUCC 40 MG/1 ML VIAL IVPUSH SCH ×3 (02:34→17:57)
[2023-08-06] MEDS: GABAPENTIN 100 MG CAPSULE PO SCH ×3 (06:15→21:52)
[2023-08-06] MEDS: ALBUTEROL SO4 2.5/IPRATROPIUM 0.5 INH SOL 3 ML VIAL.NEB. NEB SCH ×4 (07:30→20:29)
[2023-08-06 08:40] LABS: HEMATOCRIT 35.2 % (32.4-45.2); HEMOGLOBIN 11.6 GM/dL (10.7-15.3); MCH 29.3 pg (25.7-33.7); MEAN CELL VOLUME 88.7 fl (80-96); MEAN PLT VOLUME 6.9 fl (7.5-11.1); PLATELET COUNT 299 10^3/uL (134-434); RBC 3.97 M/mm3 (3.60-5.2); RDW 14.5 % (11.6-15.6); WHITE BLOOD COUNT 13.9 K/mm3 (4.0-10.0)
[2023-08-06 09:25] LABS: BLOOD UREA NITROGEN 11.8 mg/dL (7-18); CALCIUM 8.9 mg/dL (8.5-10.1)
[2023-08-06 09:29] LABS: CREATININE 0.7 mg/dL (0.55-1.3)
[2023-08-06] MEDS: PANTOPRAZOLE 40 MG TABLET PO SCH (10:19)
[2023-08-06] MEDS: CEFTRIAXONE 1 GM in DEXTROSE 5%-WATER - 50 ML IVPB SCH (10:20)
[2023-08-06] MEDS: ENOXAPARIN NA (PORCINE) 40 MG/0.4 ML DISP.SYRIN SQ SCH (10:21)
[2023-08-06] MEDS: OSELTAMIVIR PHOSPHATE 75 MG CAPSULE PO SCH ×2 (10:22→21:51)
[2023-08-06 10:32] LABS: ANISOCYTOSIS 0; MACROCYTOSIS 0
[2023-08-06] MEDS: BUDESONIDE/FORMETEROL FUMARATE 80/4.5 mcg INHALER IH SCH ×3 (10:32→21:57)
[2023-08-06] MEDS: HYDROCORTISONE 2.5% TOPICAL CREAM 30 GM TUBE RC SCH (10:32)
[2023-08-06] MEDS: DOXYCYCLINE INJECTION 100 MG in DEXTROSE 5%-WATER 100 ML IVPB SCH ×2 (11:23→21:53)
[2023-08-06] MEDS: VANCOMYCIN 1,000 MG in DEXTROSE 5%-WATER - 250 ML IVPB SCH (14:36)
[2023-08-06] MEDS: PIPERACILLIN/TAZOB 3.375 GM 3.375 GM in DEXTROSE 5%-WATER - 50 ML IVPB SCH (14:37)
[2023-08-06] MEDS ORDERED: DOXYCYCLINE HYCLATE 100 MG VIAL ONE (21:00)
[2023-08-06] MEDS: ATORVASTATIN CA 10 MG TABLET (FP) PO SCH (21:51)
[2023-08-07] MEDS: methylPREDNISolone NA SUCC 40 MG/1 ML VIAL IVPUSH SCH ×3 (02:48→17:20)
[2023-08-07] MEDS: GABAPENTIN 100 MG CAPSULE PO SCH ×3 (05:33→21:40)
[2023-08-07] MEDS: ALBUTEROL SO4 2.5/IPRATROPIUM 0.5 INH SOL 3 ML VIAL.NEB. NEB SCH ×4 (07:40→19:53)
[2023-08-07] MEDS: ENOXAPARIN NA (PORCINE) 40 MG/0.4 ML DISP.SYRIN SQ SCH (09:00)
[2023-08-07] MEDS: CEFTRIAXONE 1 GM in DEXTROSE 5%-WATER - 50 ML IVPB SCH (09:00)
[2023-08-07] MEDS: PANTOPRAZOLE 40 MG TABLET PO SCH (09:00)
[2023-08-07] MEDS: OSELTAMIVIR PHOSPHATE 75 MG CAPSULE PO SCH ×2 (09:02→21:39)
[2023-08-07] MEDS: BUDESONIDE/FORMETEROL FUMARATE 80/4.5 mcg INHALER IH SCH ×2 (09:08→21:40)
[2023-08-07] MEDS: HYDROCORTISONE 2.5% TOPICAL CREAM 30 GM TUBE RC SCH (09:09)
[2023-08-07] MEDS: DOXYCYCLINE INJECTION 100 MG in DEXTROSE 5%-WATER 100 ML IVPB SCH ×2 (10:08→21:39)
[2023-08-07 16:03] VITALS: RESP 18
[2023-08-07] MEDS: ATORVASTATIN CA 10 MG TABLET (FP) PO SCH (21:40)
[2023-08-08] MEDS: methylPREDNISolone NA SUCC 40 MG/1 ML VIAL IVPUSH SCH ×2 (01:27→09:50)
[2023-08-08 04:33] VITALS: BP 148/75; PULSE 66; TEMP 98.1
[2023-08-08] MEDS: GABAPENTIN 100 MG CAPSULE PO SCH (06:26)
[2023-08-08] MEDS: ALBUTEROL SO4 2.5/IPRATROPIUM 0.5 INH SOL 3 ML VIAL.NEB. NEB SCH ×2 (07:26→11:25)
[2023-08-08] MEDS ORDERED: cefTRIAXone SODIUM 1 GM VIAL ONE ×2 (09:45→09:47)
[2023-08-08] MEDS: ENOXAPARIN NA (PORCINE) 40 MG/0.4 ML DISP.SYRIN SQ SCH (09:50)
[2023-08-08] MEDS: CEFTRIAXONE 1 GM in DEXTROSE 5%-WATER - 50 ML IVPB SCH (09:50)
[2023-08-08] MEDS: HYDROCORTISONE 2.5% TOPICAL CREAM 30 GM TUBE RC SCH (09:51)
[2023-08-08] MEDS: PANTOPRAZOLE 40 MG TABLET PO SCH (09:51)
[2023-08-08] MEDS: DOXYCYCLINE INJECTION 100 MG in DEXTROSE 5%-WATER 100 ML IVPB SCH (09:51)
[2023-08-08] MEDS: BUDESONIDE/FORMETEROL FUMARATE 80/4.5 mcg INHALER IH SCH (09:53)
[2023-08-08] MEDS: OSELTAMIVIR PHOSPHATE 75 MG CAPSULE PO SCH (09:55)
== END 2023-08-08 13:00 | disposition home or self-care (01) | DRG 139 ==
LOC: JER 21:02 → JERBED 22:16 → J6S 08-05 05:17
PROVIDERS: ADMIT Internal Medicine; ATTEND Family Medicine
DX: J10.00 Influenza due to other identified influenza virus with unspecified type of pneumonia (principal); J47.0 Bronchiectasis with acute lower respiratory infection; J45.41 Moderate persistent asthma with (acute) exacerbation; I10 Essential (primary) hypertension; E78.5 Hyperlipidemia, unspecified
CPT/HCPCS: 0241U-QW; 36415; 71045-TC-FY; 71250-TC; 80048; 80053; 82803; 83735; 83880; 84100; 84484; 85025; 85610; 85730; 87040; 87070; 87205; 93005; 93010; 94640; 99285-25